=== PATIENT | female | born 1955 | race African-American/Black ===

== ENCOUNTER 2017-06-11 10:02 | Inpatient (IN) | payer MEDICAID ==
--- NOTE | 2017-06-11 10:28 | ED Physician Chart ---
ED Chief Complaint/HPI - Patient Information Date Seen:: 06/11/17 Time Seen:: 10:15 Chief Complaint:: Chest Pain History of Present Illness:: onset x 12 hours of intermittent, sharp chest pain radiating to left shoulder; and diaphoresis; pt denies trauma, H/As, neck pain, dyspnea, cough, abd. pain, A /N/V/D/C, fever, chills, or urinary s/s Allergies:: Allergies Allergy/AdvReac Type Severity Reaction Status Date / Time doxycycline Allergy Verified 06/11/17 10:19 levofloxacin [From Levaquin] Allergy Verified 06/11/17 10:19 prednisone Allergy Verified 06/11/17 10:19 tetracycline Allergy Verified 06/11/17 10:19 Historian:: Patient, EMS Review:: Nurse's Note Reviewed, Old Chart Reviewed, EMS run form Reviewed ED Review of Systems - Review of Systems General/Constitutional: No fever, No chills, No weight loss, No weakness, No diaphoresis, No edema, No loss of appetite Skin: No skin lesions, No rash, No bruising Head: No headache, No light-headedness Eyes: No loss of vision, No pain, No diplopia ENT: No earache, No nasal drainage, No sore throat, No tinnitus Neck: No neck pain, No swelling, No thyromegaly, No stiffness, No mass noted Cardio Vascular: Chest pain, Palpitations, No PND, No orthopnea, No edema Pulmonary: SOB, No cough, No sputum, No wheezing GI: No nausea, No vomiting, No diarrhea, No pain, No melena, No hematochezia, No constipation, No hematemesis G/U: No dysuria, No frequency, No hematuria, No nacturia [employer]: No vaginal discharge, No abnormal vaginal bleed, No contraction Musculoskeletal: No bone or joint pain, No back pain, No muscle pain Endocrine: No polyuria, No polydipsia Psychiatric: No prior psych history, No depression, No anxiety, No suicidal ideation, No homicidal ideation, No auditory hallucination, No visual hallucination Hematopoietic: No bruising, No lymphadenopathy Allergic/Immuno: No urticaria, No angioedema Neurological: No syncope, No focal symptoms, No weakness, No paresthesia, No headache, No seizure, No dizziness, No confusion, No vertigo ED Past Medical History - Past Medical History Obtainable: Yes Past Medical History: HTN, Dyslipidemia Family History: HTN Social History: Non Smoker, No Alcohol, No Drug Use, Single Surgical History: None Psychiatricy History: None Medication: Reviewed ED Physical Exam - Physical Examination General/Constitutional: Awake, Well-developed, well-nourished, Alert, No distress, GCS 15, Non-toxic appearing, Ambulatory Head: Atraumatic Eyes: Lids, conjuctiva normal, PERRL, EOMI Skin: Nl inspection, No rash, No skin lesions, No ecchymosis, Well hydrated, No lymphadenopathy ENMT: External ears, nose nl, Nasal exam nl, Lips, teeth, gums nl Neck: Nontender, Full ROM w/o pain, No JVD, No nuchal rigidity, No bruit, No mass, No stridor Respiratory: Nl effort/Exclusion, Clear to Auscultation, No Wheeze/Rhonchi/Rales Cardio Vascular: RRR, No murmur, gallop, rubs, NL S1 S2, Carotid/Femoral/Distal pulses equal bilaterally GI: No tenderness/rebounding/guarding, No organomegaly, No hernia, Normal BS's, Nondistended, No mass/bruits, No McBurney tenderness : No CVA tenderness Extremities: No tenderness or effusion, Full ROM, normal strength in all extremities, No edema, Normal digits & nails Neuro/Psych: Alert/oriented, DTR's symmetric, Normal sensory exam, Normal motor strength, Judgement/insight normal, Mood normal, Normal gait, No focal deficits Misc: Normal back, No paraspinal tenderness ED Labs/Radiology/EKG Results - Lab Results Comments:: WBC: 3.2; D-Dimer: 644; Troponin: 0.64; BNP: 464 - Radiology Results Comments:: NAD - EKG Interpretations EKG Time:: 11:16 Rate & Rhythm: 80; NSR Comments:: T-Wave Inversions ED Septic Shock - . Is Septic Shock (SBP<90, OR Lactate>4 mmol\L) present?: No ED Reassessment (Disposition) - Reassessment Reassessment Condition:: Improved - Diagnosis Diagnosis:: Dx: Myocardial Ischemia; CHF; Leukopenia; R/O: DVT/PE; Chest Pain - Aftercare/Follow up Instructions Aftercare/Follow-Up Instructions:: Counseled pt regarding lab results/diagnosis & need follow up, Counseled pt & family regarding lab results/diagnosis & need follow up - Patient Disposition Discharge/Transfer:: Acute Care w/in this hosp Accepting Physician:: Dr. Jensen Time Called:: 1215 Time Responded:: 12:15 Admitted to:: ICU Spoke to:: Dr. Jensen Admitting Medical Physician:: Dr. Jensen Condition at Disposition:: Stable, Improved
[2017-06-11 10:52] LABS: % LYMPHOCYTES 22.1 % (20.0-50.0); HEMOGLOBIN 13.3 gm/dL (12-16); LYMPHOCYTE ABSOLUTE 0.7 Th/cmm (1.5-3.0); MONOCYTE ABSOLUTE 0.3 Th/cmm (0.3-1.0); NEUTROPHILE ABSOLUTE 2.2 Th/cmm (1.8-8.0)
[2017-06-11 11:00] LABS: % BASOPHILS 0.1 % (0.0-2.0); % EOSINOPHILS 0.9 % (0.0-5.0); % MONOCYTES 9.4 % (2.0-10.0); % NEUTROPHILS 67.5 % (40.0-80.0); HEMATOCRIT 40.5 % (41.0-60); MEAN CELL VOLUME 84.1 fl (81-100); MEAN CORPUSCULAR HEMOGLOBIN 27.7 pg (27.0-31.0); MEAN PLATELET VOLUME 7.6 fl; PLATELET COUNT 282 Th/cmm (150-400); RED BLOOD COUNT 4.81 Mil/cmm (3.80-5.10); RED CELL DISTRIBUTION WIDTH 15.4 % (11.5-20.0)
[2017-06-11 11:05] LABS: ALB/GLOB RATIO 1.2 (1.0-1.8); ALKALINE PHOSPHATASE 65 U/L (34-104); ANION GAP 8.8 (7.0-16.0); BILIRUBIN,TOTAL 0.6 mg/dL (0.3-1.0); BUN - UREA NITROGEN 10 mg/dL (7-25); CALCIUM SERUM 9.9 mg/dL (8.6-10.3); CHLORIDE 104 mEq/L (98-107); CHOLESTEROL 243 mg/dL (<200); CREATININE - SERUM 0.8 mg/dL (0.6-1.2); CREATININE KINASE 116 U/L (30-223); GFR AFRICAN-AMERICAN > 60.0 ml/min (>90); GFR NON AFRICAN-AMERICAN > 60.0 ml/min; GLUCOSE 108 mg/dL (70-105); HDL -HIGH DENSITY LIPOPROTEIN 87 mg/dL (23-92); INR 0.95 (0.5-1.4); POTASSIUM SERUM 3.8 mEq/L (3.5-5.1); PROTHROMBIN TIME (TEST) 9.9 SECONDS (9.5-11.5); SGOT 34 U/L (13-39); SGPT/ALT 16 U/L (7-52); SODIUM SERUM 134 mEq/L (136-145); TOTAL PROTEIN,SERUM 7.4 gm/dL (6.0-8.3); TRIGLYCERIDES 118 mg/dL (<150); WHITE BLOOD COUNT 3.2 Th/cmm (4.8-10.8)
[2017-06-11] MEDS ORDERED: Aspirin 325 mg EC PO ONE (11:26)
[2017-06-11] MEDS ORDERED: Morphine Sulfate 2 mg/mL 1mL Syr IV STA (11:28)
[2017-06-11 11:35] LABS: DDIMER QUANT 644 ng/mL (100-400)
[2017-06-11] MEDS ORDERED: Aspirin 81mg Chewable Tab ONE (11:54)
[2017-06-11] MEDS ORDERED: Morphine Sulfate 2 mg/mL 1mL Syr ONE (11:54)
--- NOTE | 2017-06-11 14:57 | Diagnostic Imaging Report ---
CHEST X-RAY: AP view INDICATION: pain COMPARISON: None FINDINGS: Patient is mildly rotated. There is eventration of the right hemidiaphragm. Minimal right basal scarring is noted. No focal consolidation or effusions. Mildly tortuous aorta is noted. Degenerative changes of the spine are noted. Postsurgical changes of the upper abdomen are noted. IMPRESSION: No focal consolidation identified. Mildly tortuous aorta. Eventration of the right hemidiaphragm.
[2017-06-11] MEDS ORDERED: IOHEXOL 350mgI/mL 150mL IV ONE (21:30)
[2017-06-11] MEDS ORDERED: Acetaminophen 500 MG TAB PO PRN (22:38)
[2017-06-12 01:52] LABS: AMPHETAMINE URINE NEGATIVE (NEGATIVE); BARBITURATES URINE NEGATIVE (NEGATIVE); BENZODIAZEPINES QUAL URINE POSITIVE (NEGATIVE); CANNABINOID THC NEGATIVE (NEGATIVE); COCAINE METABOLITE QUAL URINE NEGATIVE (NEGATIVE); METHADONE URINE NEGATIVE (NEGATIVE); METHAMPHETAMINES QUAL URINE NEGATIVE (NEGATIVE); OPIATES (MORPHINE) QUAL. URINE POSITIVE (NEGATIVE); PHENCYCLIDINE (PCP) URINE NEGATIVE (NEGATIVE); TRICYCLICS (TCA) QUAL. URINE NEGATIVE (NEGATIVE)
--- NOTE | 2017-06-12 03:27 | History & Physical ---
ADMIT DATE: 06/11/2017 CHIEF COMPLAINT: Chest pain. HISTORY OF PRESENT ILLNESS: This is a 61-year-old with underlying history of hypertension, chronic anxiety and chronic smoker, who lives at home, was brought into the Emergency Room for evaluation of left-sided chest pain. The patient was evaluated in the Emergency Room, the patient noted to have elevated troponin as well as elevated D-dimer, subsequently admitted to the hospital for treatments. The patient stated chest pain started this morning, radiating to the left arm. No associated dizziness. No palpitation, no diaphoresis, no shortness of breath. The patient says she does have underlying history of chronic anxiety and she takes Xanax as needed. She is also a chronic smoker, quit smoking a few days ago and started wearing a nicotine patch. PAST MEDICAL HISTORY: Hypertension. PAST SURGICAL HISTORY: None reported. FAMILY HISTORY: Positive for diabetes in mother. The patient denies significant family history of heart disease. ALLERGIES: DOXYCYCLINE, LEVAQUIN, PREDNISONE, TETRACYCLINE. REVIEW OF SYSTEMS: As per HPI, 12-point system reviewed, appears negative. PHYSICAL EXAMINATION: VITAL SIGNS: Temperature 98.7, pulse 86, respirations 17, blood pressure 221/89, oxygen 98% on room air. Pain is 0/10. GENERAL APPEARANCE: The patient does not seem in acute distress, lying comfortably. HEENT: Unremarkable. HEART: S1, S2 normal. LUNGS: Clear to auscultation bilaterally. ABDOMEN: Soft, nontender. No guarding. No rigidity. NEUROLOGIC: Alert, awake, follows commands.. Moves all extremities. No focal deficits. EXTREMITIES: No edema. LABORATORY DATA: Available laboratory data has been reviewed. ASSESSMENT: 1. Chest pain with elevated troponin, rule out acute coronary syndrome. 2. Chest pain with elevated D-dimer, rule out pulmonary embolism. 3. Chronic anxiety. 4. Hypertension. 5. Chronic ex-smoker. PLAN: The patient was admitted to tele unit for cardiac monitoring. Cardiology was consulted. Echocardiogram ordered. Also, due to elevated D-dimer, rule out pulmonary embolism. CT angio chest ordered to rule out PE, pending. Lower extremity venous Doppler to rule out a DVT. Xanax p.r.n. for anxiety. Urine drug screen ordered. Metoprolol started. Aspirin started. I discussed the patient's condition and plan of care discussed with nursing staff. [facility]# [id number]
--- NOTE | 2017-06-12 08:11 | Diagnostic Imaging Report ---
Bilateral lower extremity DVT study HISTORY: Pain COMPARISON: None Technique: Longitudinal and transverse sonographic images of the bilateral lower extremity veins were obtained with doppler analysis. FINDINGS: There is normal compressibility, augmentation and phasicity of the bilateral common femoral, superficial femoral, popliteal, and posterior tibial veins. No thrombus is visualized. IMPRESSION: No evidence of thrombus within the bilateral lower extremity veins.
[2017-06-12] MEDS: Aspirin 81mg Chewable Tab PO SCH (09:00)
--- NOTE | 2017-06-12 11:53 | Diagnostic Imaging Report ---
CT angiogram of the chest with intravenous contrast (CTA) HISTORY: Pain Total DLP equals 249 CTDI equals 11.0 Following administration of intravenous contrast, axial sections were obtained from a level above the clavicles down to level below the diaphragm. The overall heart size is normal. There is normal opacification of the main, right, and left pulmonary arteries. No intraluminal filling defects are seen. Stiffly, no evidence of pulmonary embolism. There is a degree of dilatation of the ascending aorta (maximum diameter equals 3.9 cm). No evidence of aortic dissection. No abnormal mediastinal masses. No abnormal focal pulmonary parenchymal processes. No abnormal pulmonary parenchymal masses or nodules. No pleural fluid is seen. IMPRESSION: 1. No evidence of pulmonary embolism 2. Aneurysmal dilatation of the ascending aorta with a maximum diameter of approximately 3.9 cm. 3. No other acute abnormalities
[2017-06-12] MEDS ORDERED: Enoxaparin Subq per Pharmacy MC SCH (13:15)
--- NOTE | 2017-06-12 15:47 | Cardiology ---
06/12/[address] Mikey Shepard. PROCEDURE: Echocardiogram. M-MODE ECHOCARDIOGRAM: Mitral valve, anterior leaflet of mitral valve shows normal excursion, EF velocity. Posterior leaflet of mitral valve shows normal excursion. Left ventricular posterior wall shows increased thickness, normal excursion. Interventricular septum shows increased thickness, normal excursion, hypertrophy of the left ventricle, ejection fraction 50%. Left atrium normal. Aortic root shows normal dimension, normal excursion of aortic leaflets. CONCLUSION: Hypertrophy of the left ventricle, ejection fraction 50%. 2D ECHO: Long axis view showed normal sized left ventricle with hypertrophy of the left ventricle. Left atrium normal. Aortic root shows normal dimension, normal excursion of aortic leaflets. Short axis view of mitral valve normal. Short axis view of aortic valve normal. Apical four chamber view showed normal sized left ventricle, left atrium, right ventricle, right atrium, tricuspid and mitral valve. Ejection fraction 50%. CONCLUSION: Hypertrophy of the left ventricle, ejection fraction 50%. Doppler study showed mild mitral regurgitation, mild tricuspid regurgitation. [facility]# [id number]
[2017-06-12] MEDS: Enoxaparin 80 mg/0.8 mL 0.8mL Syr SUBQ SCH ×2 (15:53→21:50)
--- NOTE | 2017-06-12 18:29 | Consultation ---
DATE OF CONSULTATION: 06/12/[address] Mikey Shepard. HISTORY OF PRESENT ILLNESS: This is a 61-year-old female patient was brought to the Emergency Room with chest pain. No history of PND, orthopnea, or radiating to the arm. The patient had slightly elevated troponin level with elevated BNP level. PAST MEDICAL HISTORY: Hypertension, COPD, nicotine dependence, abdominal aortic aneurysm, and anxiety. FAMILY HISTORY: Unremarkable. SOCIAL HISTORY: The patient has been a smoker. ALLERGIES: DOXYCYCLINE, LEVAQUIN, PREDNISONE, and TETRACYCLINE. PHYSICAL EXAMINATION: VITAL SIGNS: Blood pressure 220/99, pulse 88, and respirations 28. HEAD: Normocephalic. No lumps or bumps. EYES: Pupils equal, reactive to light. Fundi show AV nicking, sclerae white, conjunctivae pink. NECK: Carotid 2+. Normal upstroke. JVD 10 cm above sternal angle. Thyroid not palpable. Lymph nodes not palpable. CHEST: Shows increased AP diameter. No kyphosis, scoliosis. LUNGS: Bilateral bronchovesicular breath sounds. HEART: PMI fifth intercostal space with lateral to midclavicular line. S1, S2. No S3, S4, soft systolic murmur. ABDOMEN: Soft. Liver, spleen not palpable. No organomegaly. Bowel sounds active. NEUROLOGIC: Unremarkable. EXTREMITIES: Peripheral pulses 2+. No pedal edema. CLINICAL IMPRESSION: Chest pain, rule out coronary artery disease, congestive heart failure, probably diastolic dysfunction acute, chronic obstructive pulmonary disease, nicotine dependence, abdominal aortic aneurysm size 3.9, and anxiety. PLAN: Mostly the patient's EKG shows normal sinus rhythm with abnormal T waves, subendocardial infarct. The patient's echocardiogram showed ejection fraction 50%, mild mitral regurgitation, mild tricuspid regurgitation, ejection fraction 50%. The patient to be started on Lovenox, beta karla, nitrates, and due to hyperlipidemia, Lipitor. JOB# [id number]
--- NOTE | 2017-06-12 20:49 | General Progress Note ---
Subjective - Review of Systems Service Date: 06/12/17 Subjective: Patient seen and examined feels better denied any complaints Objective - Results Result Diagrams: 06/11/17 10:40 06/11/17 10:40 Recent Labs: Laboratory Last Values WBC 3.2 Th/cmm (4.8-10.8) L 06/11/17 10:40 RBC 4.81 Mil/cmm (3.80-5.10) 06/11/17 10:40 Hgb 13.3 gm/dL (12-16) 06/11/17 10:40 Hct 40.5 % (41.0-60) L 06/11/17 10:40 MCV 84.1 fl (81-100) 06/11/17 10:40 MCH 27.7 pg (27.0-31.0) 06/11/17 10:40 MCHC Differential 33.0 pg (28.0-36.0) 06/11/17 10:40 RDW 15.4 % (11.5-20.0) 06/11/17 10:40 Plt Count 282 Th/cmm (150-400) 06/11/17 10:40 MPV 7.6 fl 06/11/17 10:40 Neutrophils % 67.5 % (40.0-80.0) 06/11/17 10:40 Lymphocytes % 22.1 % (20.0-50.0) 06/11/17 10:40 Monocytes % 9.4 % (2.0-10.0) 06/11/17 10:40 Eosinophils % 0.9 % (0.0-5.0) 06/11/17 10:40 Basophils % 0.1 % (0.0-2.0) 06/11/17 10:40 PT 9.9 SECONDS (9.5-11.5) 06/11/17 10:40 INR 0.95 (0.5-1.4) 06/11/17 10:40 D-Dimer 644 ng/mL (100-400) H 06/11/17 10:40 Sodium 134 mEq/L (136-145) L 06/11/17 10:40 Potassium 3.8 mEq/L (3.5-5.1) 06/11/17 10:40 Chloride 104 mEq/L (98-107) 06/11/17 10:40 Carbon Dioxide 25.0 mEq/L (21.0-31.0) 06/11/17 10:40 Anion Gap 8.8 (7.0-16.0) 06/11/17 10:40 BUN 10 mg/dL (7-25) 06/11/17 10:40 Creatinine 0.8 mg/dL (0.6-1.2) 06/11/17 10:40 Est GFR ( Amer) > 60.0 ml/min (>90) 06/11/17 10:40 Est GFR (Non-Af Amer) > 60.0 ml/min 06/11/17 10:40 BUN/Creatinine Ratio 12.5 06/11/17 10:40 Glucose 108 mg/dL (70-105) H 06/11/17 10:40 POC Glucose 105 MG/DL (70 - 105) 06/11/17 10:40 Whole Bld Lactic Acid 1.87 mmol/L (0.60-1.99) 06/11/17 10:40 Calcium 9.9 mg/dL (8.6-10.3) 06/11/17 10:40 Total Bilirubin 0.6 mg/dL (0.3-1.0) 06/11/17 10:40 AST 34 U/L (13-39) 06/11/17 10:40 ALT 16 U/L (7-52) 06/11/17 10:40 Alkaline Phosphatase 65 U/L (34-104) 06/11/17 10:40 Creatine Kinase 116 U/L (30-223) 06/11/17 10:40 Troponin I 0.32 ng/mL (0.01-0.05) H* D 06/12/17 02:30 B-Natriuretic Peptide 464.0 pg/mL (5.0-100.0) H 06/11/17 10:40 Total Protein 7.4 gm/dL (6.0-8.3) 06/11/17 10:40 Albumin 4.0 gm/dL (3.7-5.3) 06/11/17 10:40 Globulin 3.4 gm/dL 06/11/17 10:40 Albumin/Globulin Ratio 1.2 (1.0-1.8) 06/11/17 10:40 Triglycerides 118 mg/dL (<150) 06/11/17 10:40 Cholesterol 243 mg/dL (<200) H 06/11/17 10:40 LDL Cholesterol Direct 136 mg/dL (75-193) 06/11/17 10:40 HDL Cholesterol 87 mg/dL (23-92) 06/11/17 10:40 Serum , Qual NEGATIVE (NEGATIVE) 06/11/17 10:40 Urine Opiates Screen POSITIVE (NEGATIVE) H 06/12/17 00:45 Urine Methadone Screen NEGATIVE (NEGATIVE) 06/12/17 00:45 Ur Barbiturates Screen NEGATIVE (NEGATIVE) 06/12/17 00:45 Ur Tricyclics Screen NEGATIVE (NEGATIVE) 06/12/17 00:45 Ur Phencyclidine Scrn NEGATIVE (NEGATIVE) 06/12/17 00:45 Amphetamines Screen NEGATIVE (NEGATIVE) 06/12/17 00:45 U Methamphetamines Scrn NEGATIVE (NEGATIVE) 06/12/17 00:45 U Benzodiazepines Scrn POSITIVE (NEGATIVE) H 06/12/17 00:45 U Cocaine Metab Screen NEGATIVE (NEGATIVE) 06/12/17 00:45 U Cannabinoids Screen NEGATIVE (NEGATIVE) 06/12/17 00:45 - Physical Exam Vitals and I&O: Vital Signs Temp 98.2 F 06/12/17 20:00 Pulse 94 06/12/17 20:00 Resp 18 06/12/17 20:00 BP 130/90 06/12/17 20:00 Pulse Ox 100 06/12/17 20:00 Intake & Output 06/12/17 06/12/17 06/13/17 06:59 18:59 06:59 Intake Total 400 720 Balance 400 720 Weight (lbs) 64.864 kg 64.864 kg Intake: Oral 400 720 Other: # Voids 2 # Bowel Movements 0 Active Medications: Current Medications Acetaminophen (Tylenol Extra Strength) 500 mg PO Q4H PRN PRN Reason: Pain (Moderate) Stop: 08/10/17 22:37 Alprazolam (Xanax) 0.5 mg PO Q8HR PRN; Protocol PRN Reason: Anxiety Stop: 08/10/17 21:28 Aripiprazole (Abilify) 5 mg PO DAILY BERNY PRN Reason: Protocol Stop: 08/12/17 08:59 Aspirin (Aspirin Chewable) 81 mg PO DAILY BERNY Stop: 08/11/17 08:59 Last Admin: 06/12/17 09:00 Dose: 81 mg Atorvastatin Calcium (Lipitor) 10 mg PO DAILY BERNY PRN Reason: Protocol Stop: 08/12/17 08:59 Enoxaparin Sodium (Lovenox) 65 mg SUBQ Q12HR@0900,2100 [facility] Stop: 08/11/17 12:59 Last Admin: 06/12/17 15:53 Dose: 65 mg Metoprolol Tartrate (Lopressor) 12.5 mg PO BID [facility] Stop: 08/10/17 16:59 Last Admin: 06/12/17 16:00 Dose: 12.5 mg Miscellaneous (Lovenox Subq Per Pharmacy) 1 ea MC PRN BERNY PRN Reason: Protocol Stop: 08/11/17 13:14 Nicotine (Nicotine Transdermal System) 7 mg TD DAILY [facility] Stop: 08/12/17 08:59 Ondansetron HCl (Zofran) 4 mg IV Q6H PRN PRN Reason: Nausea / Vomiting Stop: 08/10/17 21:29 Sertraline HCl (Zoloft) 50 mg PO HS BERNY PRN Reason: Protocol Stop: 08/11/17 20:59 Tramadol HCl (Ultram) 50 mg PO Q6HR PRN PRN Reason: Moderate to Severe Pain Stop: 08/10/17 22:25 Last Admin: 06/12/17 15:52 Dose: 50 mg Trazodone HCl (Desyrel) 50 mg PO HS PRN; Protocol PRN Reason: Insomnia Stop: 08/11/17 20:59 Last Admin: 06/12/17 00:23 Dose: 50 mg Cardiovascular: Regular rate Lungs: Clear to auscultation Assessment/Plan - Problem List Patient Problems: All Active Problems DIAPHORETIC EPISODE (Acute) - Assessment Assessment: Acute coronary syndrome Nicotine dependancy HTN Anxiety Elevated D Dimer - Plan Plan: Case was discussed with DR Beverly WARE (Cardiology on board) who recommended patient needs to be transferred out for cardiac cath. Transfer in progress per CM. Continue current treatment. Patient aware about her diagnosis and plan of care Nicotine patch started. CT Angio negative for PE. Aneurysm 3.9 cm stable.
--- NOTE | 2017-06-13 01:18 | Consultation ---
DATE OF CONSULTATION: 06/12/2017 HISTORY OF PRESENT ILLNESS: A 61-year-old female with history of major depression and smoking and history of alcoholism and panic disorder, also notes that she has a history of schizophrenia. The patient came in due to elevated troponins, elevated D-dimer, states she had a panic attack near the bus stop on the way to her psychiatrist. Denies current depression, but just anxiety, panic disorder once a week to once a month, fairly well controlled. The patient states she is sleeping okay, eating okay. She states her eating is limited because she has history of having gastric sleeve. The patient is hopeful and motivated, wants things to get better. PAST PSYCHIATRIC HISTORY: Suicide attempt about 2 years ago. She has been to a psychiatric hospital before, alludes to a history of diagnosed schizophrenia, depression and social anxiety and panic disorder and generalized anxiety disorder. FAMILY HISTORY: Brother with schizophrenia. SOCIAL HISTORY: Born in [place], . She states she has two daughters. One of the daughters she notes lives in [place], currently living in [place], trying to stop smoking, uses the patch, trying to stop drinking, get the Vivitrol shot, drinks about one can of beer per day now. She is very motivated to get off of alcohol and cigarettes. ALLERGIES: Noted. PAST MEDICAL HISTORY: Noted including hypertension. MENTAL STATUS EXAMINATION: Stated age. Fair eye contact. Speech within normal limits. Mood "better". Affect broad. Thought processes were linear. No SI, no intent, no plan. No HI, no intent, no plan. No evidence of any psychotic symptoms. Insight and judgment fair. The patient wants help. She wants to get better. PROVISIONAL DIAGNOSES: Schizophrenia per the patient, major depressive disorder, unspecified, seemingly in full remission. Also, social anxiety disorder, generalized anxiety disorder, panic disorder, alcohol use disorder, mild; nicotine use disorder, mild. She is trying to quit. UNDER MEDICAL: Please see full H and P. PLAN: We initiate Zoloft. The patient may also benefit from an antipsychotic given her schizophrenia history such as Georginalijah. This may also help tamper down some of her anxiety. No 5150 criteria. She is not suicidal. She is not homicidal. She is not gravely disabled. JOB# [id number]
[2017-06-13] MEDS: Atorvastatin Calcium 10 MG TAB PO SCH (09:28)
[2017-06-13] MEDS: Enoxaparin 80 mg/0.8 mL 0.8mL Syr SUBQ SCH ×2 (09:28→21:34)
[2017-06-13] MEDS: Aspirin 81mg Chewable Tab PO SCH (09:28)
[2017-06-13] MEDS: Nicotine 7 mg/24 hr Tdm TD SCH (09:30)
--- NOTE | 2017-06-13 13:37 | General Progress Note ---
Subjective - Review of Systems Service Date: 06/13/17 Subjective: Patient seen and examined feels better denied any complaints Objective - Results Result Diagrams: 06/11/17 10:40 06/11/17 10:40 Recent Labs: Laboratory Last Values WBC 3.2 Th/cmm (4.8-10.8) L 06/11/17 10:40 RBC 4.81 Mil/cmm (3.80-5.10) 06/11/17 10:40 Hgb 13.3 gm/dL (12-16) 06/11/17 10:40 Hct 40.5 % (41.0-60) L 06/11/17 10:40 MCV 84.1 fl (81-100) 06/11/17 10:40 MCH 27.7 pg (27.0-31.0) 06/11/17 10:40 MCHC Differential 33.0 pg (28.0-36.0) 06/11/17 10:40 RDW 15.4 % (11.5-20.0) 06/11/17 10:40 Plt Count 282 Th/cmm (150-400) 06/11/17 10:40 MPV 7.6 fl 06/11/17 10:40 Neutrophils % 67.5 % (40.0-80.0) 06/11/17 10:40 Lymphocytes % 22.1 % (20.0-50.0) 06/11/17 10:40 Monocytes % 9.4 % (2.0-10.0) 06/11/17 10:40 Eosinophils % 0.9 % (0.0-5.0) 06/11/17 10:40 Basophils % 0.1 % (0.0-2.0) 06/11/17 10:40 PT 9.9 SECONDS (9.5-11.5) 06/11/17 10:40 INR 0.95 (0.5-1.4) 06/11/17 10:40 D-Dimer 644 ng/mL (100-400) H 06/11/17 10:40 Sodium 134 mEq/L (136-145) L 06/11/17 10:40 Potassium 3.8 mEq/L (3.5-5.1) 06/11/17 10:40 Chloride 104 mEq/L (98-107) 06/11/17 10:40 Carbon Dioxide 25.0 mEq/L (21.0-31.0) 06/11/17 10:40 Anion Gap 8.8 (7.0-16.0) 06/11/17 10:40 BUN 10 mg/dL (7-25) 06/11/17 10:40 Creatinine 0.8 mg/dL (0.6-1.2) 06/11/17 10:40 Est GFR ( Amer) > 60.0 ml/min (>90) 06/11/17 10:40 Est GFR (Non-Af Amer) > 60.0 ml/min 06/11/17 10:40 BUN/Creatinine Ratio 12.5 06/11/17 10:40 Glucose 108 mg/dL (70-105) H 06/11/17 10:40 POC Glucose 105 MG/DL (70 - 105) 06/11/17 10:40 Whole Bld Lactic Acid 1.87 mmol/L (0.60-1.99) 06/11/17 10:40 Calcium 9.9 mg/dL (8.6-10.3) 06/11/17 10:40 Total Bilirubin 0.6 mg/dL (0.3-1.0) 06/11/17 10:40 AST 34 U/L (13-39) 06/11/17 10:40 ALT 16 U/L (7-52) 06/11/17 10:40 Alkaline Phosphatase 65 U/L (34-104) 06/11/17 10:40 Creatine Kinase 116 U/L (30-223) 06/11/17 10:40 Troponin I 0.32 ng/mL (0.01-0.05) H* D 06/12/17 02:30 B-Natriuretic Peptide 464.0 pg/mL (5.0-100.0) H 06/11/17 10:40 Total Protein 7.4 gm/dL (6.0-8.3) 06/11/17 10:40 Albumin 4.0 gm/dL (3.7-5.3) 06/11/17 10:40 Globulin 3.4 gm/dL 06/11/17 10:40 Albumin/Globulin Ratio 1.2 (1.0-1.8) 06/11/17 10:40 Triglycerides 118 mg/dL (<150) 06/11/17 10:40 Cholesterol 243 mg/dL (<200) H 06/11/17 10:40 LDL Cholesterol Direct 136 mg/dL (75-193) 06/11/17 10:40 HDL Cholesterol 87 mg/dL (23-92) 06/11/17 10:40 Serum , Qual NEGATIVE (NEGATIVE) 06/11/17 10:40 Urine Opiates Screen POSITIVE (NEGATIVE) H 06/12/17 00:45 Urine Methadone Screen NEGATIVE (NEGATIVE) 06/12/17 00:45 Ur Barbiturates Screen NEGATIVE (NEGATIVE) 06/12/17 00:45 Ur Tricyclics Screen NEGATIVE (NEGATIVE) 06/12/17 00:45 Ur Phencyclidine Scrn NEGATIVE (NEGATIVE) 06/12/17 00:45 Amphetamines Screen NEGATIVE (NEGATIVE) 06/12/17 00:45 U Methamphetamines Scrn NEGATIVE (NEGATIVE) 06/12/17 00:45 U Benzodiazepines Scrn POSITIVE (NEGATIVE) H 06/12/17 00:45 U Cocaine Metab Screen NEGATIVE (NEGATIVE) 06/12/17 00:45 U Cannabinoids Screen NEGATIVE (NEGATIVE) 06/12/17 00:45 - Physical Exam Vitals and I&O: Vital Signs Temp 97.9 F 06/13/17 12:00 Pulse 91 06/13/17 12:00 Resp 18 06/13/17 12:00 BP 98/69 06/13/17 12:00 Pulse Ox 97 06/13/17 12:00 Intake & Output 06/12/17 06/13/17 06/13/17 18:59 06:59 18:59 Intake Total 720 Balance 720 Weight (lbs) 64.864 kg 71.441 kg Intake: Oral 720 Active Medications: Current Medications Acetaminophen (Tylenol Extra Strength) 500 mg PO Q4H PRN PRN Reason: Pain (Moderate) Stop: 08/10/17 22:37 Alprazolam (Xanax) 0.5 mg PO Q8HR PRN; Protocol PRN Reason: Anxiety Stop: 08/10/17 21:28 Aripiprazole (Abilify) 5 mg PO DAILY BERNY PRN Reason: Protocol Stop: 08/12/17 08:59 Aspirin (Aspirin Chewable) 81 mg PO DAILY BERNY Stop: 08/11/17 08:59 Last Admin: 06/13/17 09:28 Dose: 81 mg Atorvastatin Calcium (Lipitor) 10 mg PO DAILY BERNY PRN Reason: Protocol Stop: 08/12/17 08:59 Last Admin: 06/13/17 09:28 Dose: 10 mg Enoxaparin Sodium (Lovenox) 65 mg SUBQ Q12HR@0900,2100 [facility] Stop: 08/11/17 12:59 Last Admin: 06/13/17 09:28 Dose: 65 mg Metoprolol Tartrate (Lopressor) 12.5 mg PO BID [facility] Stop: 08/10/17 16:59 Last Admin: 06/13/17 09:29 Dose: Not Given Miscellaneous (Lovenox Subq Per Pharmacy) 1 ea MC PRN BERNY PRN Reason: Protocol Stop: 08/11/17 13:14 Nicotine (Nicotine Transdermal System) 7 mg TD DAILY [facility] Stop: 08/12/17 08:59 Last Admin: 06/13/17 09:30 Dose: 7 mg Ondansetron HCl (Zofran) 4 mg IV Q6H PRN PRN Reason: Nausea / Vomiting Stop: 08/10/17 21:29 Sertraline HCl (Zoloft) 50 mg PO HS BERNY PRN Reason: Protocol Stop: 08/11/17 20:59 Tramadol HCl (Ultram) 50 mg PO Q6HR PRN PRN Reason: Moderate to Severe Pain Stop: 08/10/17 22:25 Last Admin: 06/13/17 09:45 Dose: 50 mg Trazodone HCl (Desyrel) 50 mg PO HS PRN; Protocol PRN Reason: Insomnia Stop: 08/11/17 20:59 Last Admin: 06/12/17 21:58 Dose: 50 mg Cardiovascular: Regular rate Lungs: Clear to auscultation Assessment/Plan - Problem List Patient Problems: All Active Problems DIAPHORETIC EPISODE (Acute) - Assessment Assessment: Acute coronary syndrome Nicotine dependancy HTN Anxiety Elevated D Dimer - Plan Plan: Awaiting DC to [facility] Continue current treatment DC plan discussed with patient's nurse
[2017-06-14] MEDS: Atorvastatin Calcium 10 MG TAB PO SCH (08:42)
[2017-06-14] MEDS: Aspirin 81mg Chewable Tab PO SCH (08:43)
[2017-06-14] MEDS: Nicotine 7 mg/24 hr Tdm TD SCH (08:44)
[2017-06-14] MEDS: Enoxaparin 80 mg/0.8 mL 0.8mL Syr SUBQ SCH (08:47)
--- NOTE | 2017-06-14 10:02 | Progress Notes ---
DATE: PSYCHIATRIC PROGRESS NOTE SUBJECTIVE: Chart reviewed and the patient interviewed. Also discussed the patient's condition with the staff and reviewed records and labs. The patient seems to be calm at this time and she is not agitated. It is also easier to redirect her. She also has been compliant with taking Abilify and Zoloft with no side effects. ASSESSMENT: The patient is less psychotic and less agitated. TREATMENT PLAN: We will continue to monitor behavior and her condition and will continue to follow up closely. [facility]# [id number]
== END 2017-06-14 10:00 | disposition short-term general hospital (02) | DRG 198 ==
LOC: ER 10:02 → TELE 14:50
PROVIDERS: ADMIT Family Medicine; ATTEND Family Medicine
DX: I24.9 Acute ischemic heart disease, unspecified (principal); I11.0 Hypertensive heart disease with heart failure; F20.9 Schizophrenia, unspecified; I50.9 Heart failure, unspecified; E78.5 Hyperlipidemia, unspecified; F17.210 Nicotine dependence, cigarettes, uncomplicated; Z88.8 Allergy status to other drugs, medicaments and biological substances; Z82.49 Family history of ischemic heart disease and other diseases of the circulatory system; Z83.3 Family history of diabetes mellitus; F10.20 Alcohol dependence, uncomplicated; Y90.9 Presence of alcohol in blood, level not specified; Z81.8 Family history of other mental and behavioral disorders; F33.42 Major depressive disorder, recurrent, in full remission; F41.1 Generalized anxiety disorder; J44.9 Chronic obstructive pulmonary disease, unspecified; I71.4 Abdominal aortic aneurysm, without rupture
CPT/HCPCS: 36415-UA; 71045-TC; 71275-TC; 80053-TC; 80061-TC; 80307; 82550-TC; 82948-90; 83605; 83880-TC; 84484-TC; 84703-TC; 85025-TC; 85379-TC; 85610-TC; 93005; 93970-TC-50; 94760; 96374; J1650; J2060; J2270; Z7610

== ENCOUNTER 2017-06-16 07:41 | Emergency (ER) | payer MEDICAID ==
--- NOTE | 2017-06-16 08:01 | ED Physician Chart ---
ED Chief Complaint/HPI - Patient Information Date Seen:: 06/16/17 Time Seen:: 07:58 Chief Complaint:: LEG PAIN 2 HOURS History of Present Illness:: THIS 61-YEAR-OLD FEMALE PRESENTS WITH PAIN IN THE LEFT CALF THAT BEGAN APPROXIMATELY 2 HOURS PRIOR TO ARRIVAL. PATIENT RATES THE SEVERITY OF THE PAIN 10 OVER 10 AND THE CHARACTER OF THE PAIN CRAMPING AND NOT SHARP. THE PAIN RADIATES INTO THE LEFT FOOT. THE PATIENT ALSO COMPLAINS OF NUMBNESS IN THE LEFT LOWER EXTREMITY WHICH HAS PREVIOUSLY BEEN PRESENT. THE PATIENT HAS A COMPLEX HISTORY WITH A RECENT ANGIOGRAM DONE IN THE RIGHT LOWER EXTREMITY. THE PT WAS DISCHARGED LAST PM AFTER A WORK UP FOR CHEST PAIN INCLUDING A CORONARY ANGIOGRAM AFTER BEING WORKED UP TO RULE OUT AN ACUTE VA BY CARDIOLOGY. NO HISTORY OF RECENT SURGERY OR CANCER. NO HISTORY OF PROLONGED IMMOBILIZATION OF THE LOWER EXTREMITIES. NO PRIOR HISTORY OF DVT OR PRIOR PULMONARY EMBOLISM. PATIENT ALSO COMPLAINS OF NUMBNESS IN THE LEFT CALF AND DISTAL LOWER EXTREMITY.. Allergies:: Allergies Allergy/AdvReac Type Severity Reaction Status Date / Time doxycycline Allergy Verified 06/11/17 10:19 levofloxacin [From Levaquin] Allergy Verified 06/11/17 10:19 prednisone Allergy Verified 06/11/17 10:19 tetracycline Allergy Verified 06/11/17 10:19 ED Review of Systems - Review of Systems General/Constitutional: No fever, No chills, No weight loss, Weakness, Diaphoresis, No loss of appetite Skin: No skin lesions, No rash, No bruising Head: No headache, No light-headedness Eyes: No loss of vision, No diplopia ENT: No earache, Sore throat, No tinnitus Neck: Neck pain ( PAIN IN THE LEFT SUPRACLAVICULAR REGION OF THE NET.) Cardio Vascular: No chest pain, No palpitations, No PND, No orthopnea, No edema Pulmonary: SOB, No SOB, No cough, No sputum, No wheezing GI: Nausea, No vomiting, Diarrhea, No pain, No melena, No hematochezia, No constipation, Hematemesis, No hematemesis G/U: No dysuria, No hematuria, No nacturia 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 PARESTHESIAS AND NUMBNESS IN THE LEFT LOWER EXTREMITY.) ED Past Medical History - Past Medical History Past Medical History: HTN, Dementia, Other ( 3.9 CM AORTIC ANEURYSM.) Family History: Heart disease Social History: Smoker, Lives Alone Surgical History: None Family Medical History - Family Member Mother Living Status: Still Living Hx Family Diabetes: Yes Brother Living Status: Still Living Hx Family Diabetes: Yes ED Physical Exam - Physical Examination General/Constitutional: Awake, Well-developed, well-nourished, Alert, Non-toxic appearing Other Gen/Cons comments:: MODERATE DISTRESS SECONDARY TO PAIN IN THE LEFT LEG. NONAMBULATORY. ED Labs/Radiology/EKG Results - Lab Results Results: Laboratory Tests 06/16/17 09:20 Troponin I 0.08 H* D Laboratory Tests 06/16/17 09:20 Troponin I 0.08 H* D SERUM TROPONIN OF ZERO .08 WHICH IS LOWER THAN THE TROPONIN DURING THE HOSPITAL WORK UP OR CHEST PAIN. A DOPPLER STUDY OF THE LEFT LOWER EXTREMITY SHOWED NO EVIDENCE FOR DVT. ED Assessment - Assessment General Assessment: CASE SUMMARY: THIS 61-YEAR-OLD FEMALE PRESENTS TO THE EMERGENCY DEPARTMENT COMPLAINING OF THE COMBINATION OF NUMBNESS AND SEVERE PAIN IN THE LEFT CALF THERE WAS MILD TENDERNESS TO PALPATION OVER THE CALF SENSATION WAS INTACT TO LIGHT TOUCH OVER THE ANKLE AND FOOT. THE PATIENT'S PAIN WAS ADDRESSED WITH 0.5 MG OF DILAUDID. WHICH PROVIDED GOOD RELIEF OF PAIN. DUE TO THE FACT THAT THE PATIENT HAD AN EXTENSIVE CARDIAC WORKUP FOR HER CHEST PAIN, AND THAT THERE WAS NO EVIDENCE OF A DVT I FELT THE PATIENT COULD BE DISCHARGED HOME AND FOLLOW UP WITH HER PRIMARY CARE PHYSICIAN. PATIENT DISCHARGED IN STABLE CONDITION. MDM DDX FOR SEVERE CALF PAIN: NOT GASTROCNEMIUS MUSCLE TEAR BASED ON THE PATIENT'S HISTORY AND EXAMINATION SHOWING NO GASTROCNEMIUS TENDERNESS. NOT CELLULITIS BASED ON PHYSICAL EXAMINATION. LOW RISK FOR NECROTIZING FASCIITIS BASED ON HISTORY AND PHYSICAL EXAM. NOT SIMPLE MUSCLE CRAMP, ED Septic Shock - . Is Septic Shock (SBP<90, OR Lactate>4 mmol\L) present?: No ED Reassessment (Disposition) - Reassessment Reassessment Condition:: Improved - Diagnosis Diagnosis:: NOT DEEP VEIN THROMBOSIS BASED ON THE NEGATIVE ULTRASOUND EXAM. - Aftercare/Follow up Instructions Aftercare/Follow-Up Instructions:: Counseled pt regarding lab results/diagnosis & need follow up - Patient Disposition Discharge/Transfer:: Home ED Discharge Plan - Patient Disposition Admit/Discharge/Transfer: PT DISCHARGED HOME Condition at Disposition: Stable Instructions: Pain, Neuropathic
[2017-06-16] MEDS ORDERED: HYDROmorphone 1 mg/mL 1mL Syr IVP STA (08:33)
[2017-06-16] MEDS ORDERED: HYDROmorphone 1 mg/mL 1mL Syr ONE (11:56)
--- NOTE | 2017-06-17 09:25 | Diagnostic Imaging Report ---
Left lower extremity Doppler venous ultrasound exam HISTORY: Pain/swelling Sonographic sector images were obtained through the deep venous systems of the left leg. Associated Doppler data was obtained. The exam demonstrates patency of the common femoral, superficial femoral, popliteal, and posterior tibial veins. Specifically, no thrombus is seen. There are normal compressibility and augmentation responses. IMPRESSION: Negative exam for deep vein thrombophlebitis.
== END 2017-06-16 12:22 | disposition home or self-care (01) ==
LOC: ER 07:41
DX: M79.605 Pain in left leg (principal); I10 Essential (primary) hypertension; F17.200 Nicotine dependence, unspecified, uncomplicated
CPT/HCPCS: 36415-UA; 84484-TC; 93005; 93971-TC-LT; 96374; J1170

== ENCOUNTER 2017-06-23 11:40 | Emergency (ER) | payer MEDICAID ==
--- NOTE | 2017-06-23 12:11 | ED Physician Chart ---
ED Chief Complaint/HPI - Patient Information Date Seen:: 06/23/17 Time Seen:: 12:10 Chief Complaint:: Left foot pain History of Present Illness:: 61 yo female had left foot pain for a week. She had painful walking on the left foot and bearing weight. She came to ER for left calf pain a week ago, ultrasound of the left lower extremity was negative for DVT. Dilaudid 0.5mg IV was given at that time. Allergies:: Allergies Allergy/AdvReac Type Severity Reaction Status Date / Time doxycycline Allergy Verified 06/11/17 10:19 levofloxacin [From Levaquin] Allergy Verified 06/11/17 10:19 prednisone Allergy Verified 06/11/17 10:19 tetracycline Allergy Verified 06/11/17 10:19 Vitals:: Vital Signs - 8 hr 06/23/17 11:42 Temp 97.3 F HR 107 RR 18 BP 113/82 O2 Sat % 99 ED Review of Systems - Review of Systems General/Constitutional: No fever Skin: No rash Head: No headache Eyes: No pain ENT: No nasal drainage Neck: No neck pain Cardio Vascular: No chest pain Pulmonary: No SOB GI: No nausea, No vomiting Musculoskeletal: Other (Left foot pain) Psychiatric: Prior psych history ED Past Medical History - Past Medical History Past Medical History: Dyslipidemia, Other (AAA) Social History: Smoker, No Alcohol, No Drug Use Surgical History: Cholecystectomy Psychiatricy History: Schizophrenia, Bipolar Family Medical History - Family Member Mother Living Status: Still Living Hx Family Cancer: No Hx Family Coronary Artery Disease: No Hx Family Hypertension: No Hx Family Diabetes: Yes Hx Family Seizures: No Hx Family AIDS: No Hx Family COPD: No Brother History Unknown: Yes Living Status: Still Living Hx Family Cancer: No Hx Family Congestive Heart Failure: No Hx Family Stroke: No Hx Family Diabetes: Yes Hx Family Dementia: No Hx Family HIV: No Hx Family Hepatitis: No Hx Family Psychiatric Problems: No ED Physical Exam - Physical Examination General/Constitutional: Awake, Alert Head: Atraumatic Eyes: PERRL Skin: No ecchymosis ENMT: Nasal exam nl Neck: No nuchal rigidity Respiratory: Clear to Auscultation, No Wheeze/Rhonchi/Rales Cardio Vascular: RRR, No murmur, gallop, rubs, NL S1 S2 GI: No tenderness/rebounding/guarding Other Extremities comments:: Left foot plantar tenderness Neuro/Psych: No focal deficits ED Labs/Radiology/EKG Results - Radiology Results Results: Left foot X ray: no fracture, calcaneal spur ED Assessment - Assessment General Assessment: Left foot pain Left plantar fasciitis UTI Assessment/Comments:: CBC, CMP, uric acid UA, urine drug screen Left foot X ray Toradol 30mg IM x 1 Bactrim DS po x 1 D/c home Bactrim DS bid x 3 days F/u PCP and water treatment technician ED Septic Shock - . Is Septic Shock (SBP<90, OR Lactate>4 mmol\L) present?: No - <6hrs of presentation: Vital Signs: Vital Signs - 8 hr 06/23/18 11:42 Temp 97.3 F HR 107 RR 18 BP 113/82 O2 Sat % 99 ED Reassessment (Disposition) - Reassessment Reassessment Condition:: Improved - Patient Disposition Discharge/Transfer:: Home ED Discharge Plan - Patient Disposition Prescriptions: Sulfamethoxazole/Trimethoprim [Bactrim Ds Tablet] 1 tab PO BID #6 tab Instructions: Heel Spur, Plantar Fasciitis Additional Instructions: Follow-up with primary MD and water treatment technician as soon as possible. Return to nearest ED if symptoms worsen.
[2017-06-23 13:02] LABS: % BASOPHILS 0.3 % (0.0-2.0); % EOSINOPHILS 1.5 % (0.0-5.0); % LYMPHOCYTES 11.4 % (20.0-50.0); % MONOCYTES 7.1 % (2.0-10.0); % NEUTROPHILS 79.7 % (40.0-80.0); EOSINOPHILE ABSOLUTE 0.1 Th/cmm (0.1-0.4); HEMATOCRIT 36.1 % (41.0-60); HEMOGLOBIN 11.7 gm/dL (12-16); LYMPHOCYTE ABSOLUTE 0.9 Th/cmm (1.5-3.0); MEAN CORPUSCULAR HEMOGLOBIN 27.5 pg (27.0-31.0); MEAN CORPUSCULAR HGB CONC 32.3 pg (28.0-36.0); MEAN PLATELET VOLUME 7.8 fl; MONOCYTE ABSOLUTE 0.6 Th/cmm (0.3-1.0); NEUTROPHILE ABSOLUTE 6.3 Th/cmm (1.8-8.0); PLATELET COUNT 314 Th/cmm (150-400); RED BLOOD COUNT 4.24 Mil/cmm (3.80-5.10); RED CELL DISTRIBUTION WIDTH 15.8 % (11.5-20.0); WHITE BLOOD COUNT 7.9 Th/cmm (4.8-10.8)
[2017-06-23 13:17] LABS: ALB/GLOB RATIO 1.1 (1.0-1.8); ALBUMIN 3.8 gm/dL (3.7-5.3); ALKALINE PHOSPHATASE 53 U/L (34-104); ANION GAP 10.8 (7.0-16.0); BILIRUBIN,TOTAL 0.5 mg/dL (0.3-1.0); BUN - UREA NITROGEN 11 mg/dL (7-25); CALCIUM SERUM 10.1 mg/dL (8.6-10.3); CARBON DIOXIDE 28.5 mEq/L (21.0-31.0); CHLORIDE 103 mEq/L (98-107); CREATININE - SERUM 0.8 mg/dL (0.6-1.2); GFR AFRICAN-AMERICAN > 60.0 ml/min (>90); GFR NON AFRICAN-AMERICAN > 60.0 ml/min; GLUCOSE 85 mg/dL (70-105); POTASSIUM SERUM 4.3 mEq/L (3.5-5.1); SGOT 22 U/L (13-39); SGPT/ALT 11 U/L (7-52); SODIUM SERUM 138 mEq/L (136-145); TOTAL PROTEIN,SERUM 7.4 gm/dL (6.0-8.3); URIC ACID 3.9 mg/dL (2.3-6.6)
[2017-06-23 13:45] LABS: URINE MICROSCOPIC INDICATED? YES; URINE SOURCE RANDOM
[2017-06-23 13:50] LABS: URINE BILIRUBIN SMALL (NEGATIVE); URINE BLOOD NEGATIVE (NEGATIVE); URINE GLUCOSE (UA) NEGATIVE (NEGATIVE); URINE KETONE NEGATIVE (NEGATIVE); URINE LEUKOCYTE ESTERASE NEGATIVE (NEGATIVE); URINE NITRATE NEGATIVE (NEGATIVE); URINE PH 5.5 (4.6 - 8.0); URINE PROTEIN 30 mg/dL (NEGATIVE); URINE UROBILINOGEN 0.2 E.U./dL (0.2 - 1.0)
[2017-06-23 13:54] LABS: URINE CLARITY HAZY (CLEAR); URINE COLOR YELLOW
[2017-06-23 13:57] LABS: URINE BACTERIA 1+ /hpf (NONE SEEN); URINE EPITHELIAL CELLS MODERATE /lpf (FEW); URINE FINE GRANULAR CAST 0-2 /lpf (NONE SEEN)
[2017-06-23 13:58] LABS: URINE WHITE BLOOD CELL CAST 0-2 /lpf (NONE SEEN)
[2017-06-23 14:00] LABS: AMPHETAMINE URINE NEGATIVE (NEGATIVE); BARBITURATES URINE NEGATIVE (NEGATIVE); BENZODIAZEPINES QUAL URINE NEGATIVE (NEGATIVE); CANNABINOID THC NEGATIVE (NEGATIVE); COCAINE METABOLITE QUAL URINE NEGATIVE (NEGATIVE); METHADONE URINE NEGATIVE (NEGATIVE); METHAMPHETAMINES QUAL URINE NEGATIVE (NEGATIVE); OPIATES (MORPHINE) QUAL. URINE NEGATIVE (NEGATIVE); PHENCYCLIDINE (PCP) URINE NEGATIVE (NEGATIVE); TRICYCLICS (TCA) QUAL. URINE NEGATIVE (NEGATIVE)
[2017-06-23] MEDS ORDERED: Sulfamethoxazole/TMP 800/160mg Tab PO ONE (14:10)
[2017-06-23] MEDS ORDERED: Sulfamethoxazole/TMP 800/160mg Tab ONE (14:11)
--- NOTE | 2017-06-24 10:39 | Diagnostic Imaging Report ---
Left foot 3 views Indication: Plantar pain Comparison: none Findings: There is a small plantar calcaneal spur. Mild to moderate degenerative changes are noted with osteophytic spurring of the talonavicular junction. There is slight irregularity involving the medial aspect of the navicular bone. No focal soft tissue swelling. Impression: Small plantar calcaneal spur. Slight irregularity involving the medial aspect of navicular bone possibly related to previous trauma, probably old. Otherwise no acute fracture identified. Please correlate with clinical findings. Degenerative changes. In the setting of trauma, if clinical symptoms persist and there is continued concern for an occult fracture, follow up exams in 5-7 days is suggested.
== END 2017-06-23 14:30 | disposition home or self-care (01) ==
LOC: ER 11:40
DX: M79.672 Pain in left foot (principal); E78.5 Hyperlipidemia, unspecified; F17.200 Nicotine dependence, unspecified, uncomplicated; M72.2 Plantar fascial fibromatosis; N39.0 Urinary tract infection, site not specified
CPT/HCPCS: 99285; 96372; 73630; 84484; 36415; 80307; 85025; 80053; 84550; 81001; J1885

== ENCOUNTER 2017-07-02 12:31 | Inpatient (IN) | payer MEDICAID ==
[2017-07-02] MEDS ORDERED: cefTRIAXone 1 GM in Sodium Chloride 0.9% 50 ML IV ONE (15:15)
[2017-07-02] MEDS ORDERED: Morphine Sulfate 2 mg/mL 1mL Syr IV STA (15:21)
--- NOTE | 2017-07-02 15:21 | ED Physician Chart ---
ED Chief Complaint/HPI - Patient Information Date Seen:: 07/02/17 Time Seen:: 12:50 Chief Complaint:: Leg Redness History of Present Illness:: onset x 3 days of LE pain, erythema, and swelling; pt denies trauma, H/As, neck pain, C/P, SOB, Abd. Pain, A/N/V/D/c, fever, chills, or urinary s/s; pt's last tetanus shot: < 5 years; UTD Allergies:: Allergies Allergy/AdvReac Type Severity Reaction Status Date / Time doxycycline Allergy Verified 06/11/17 10:19 levofloxacin [From Levaquin] Allergy Verified 06/11/17 10:19 prednisone Allergy Verified 06/11/17 10:19 tetracycline Allergy Verified 06/11/17 10:19 Vitals:: Vital Signs - 8 hr 07/02/17 12:49 Temp 98.1 F HR 97 RR 23 BP 139/95 O2 Sat % 98 Historian:: Patient Review:: Nurse's Note Reviewed ED Review of Systems - Review of Systems General/Constitutional: No fever, No chills, No weight loss, No weakness, No diaphoresis, No edema, No loss of appetite Skin: Skin lesions, Rash, No bruising Head: No headache, No light-headedness Eyes: No loss of vision, No pain, No diplopia ENT: No earache, No nasal drainage, No sore throat, No tinnitus Neck: No neck pain, No swelling, No thyromegaly, No stiffness, No mass noted Cardio Vascular: No chest pain, No palpitations, No PND, No orthopnea, No edema Pulmonary: No SOB, No cough, No sputum, No wheezing GI: No nausea, No vomiting, No diarrhea, No pain, No melena, No hematochezia, No constipation, No hematemesis G/U: No dysuria, No frequency, No hematuria, No nacturia Musculoskeletal: No bone or joint pain, No back pain, No muscle pain Endocrine: No polyuria, No polydipsia Psychiatric: Prior psych history, No prior psych history, Depression, Anxiety, No suicidal ideation, No homicidal ideation, No auditory hallucination, No visual hallucination Hematopoietic: No bruising, No lymphadenopathy Allergic/Immuno: No urticaria, No angioedema Neurological: No syncope, No focal symptoms, No weakness, No paresthesia, No headache, No seizure, No dizziness, Confusion, No vertigo ED Past Medical History - Past Medical History Obtainable: Yes Past Medical History: HTN, Asthma/COPD, Dyslipidemia, PUD/GERD, Arthritis, Dementia Family History: HTN Social History: Non Smoker, No Alcohol, No Drug Use, Single Surgical History: None Psychiatricy History: Depression, Bipolar, Dementia Medication: Reviewed Family Medical History - Family Member Mother Ethnicity: Non- Living Status: Still Living Hx Family Cancer: No Hx Family Coronary Artery Disease: No Hx Family Congestive Heart Failure: No Hx Family Hypertension: No Hx Family Stroke: No Hx Family Diabetes: Yes Hx Family Seizures: No Hx Family Dementia: No Hx Family AIDS: No Hx Family HIV: No Hx Family COPD: No Hx Family Hepatitis: No Hx Family Psychiatric Problems: No Hx Family Tuberculosis: No Brother History Unknown: Yes Ethnicity: Non- Living Status: Still Living Hx Family Cancer: No Hx Family Coronary Artery Disease: No Hx Family Congestive Heart Failure: No Hx Family Hypertension: Yes Hx Family Stroke: No Hx Family Diabetes: Yes Hx Family Seizures: No Hx Family Dementia: No Hx Family AIDS: No Hx Family HIV: No Hx Family COPD: No Hx Family Hepatitis: No Hx Family Psychiatric Problems: No Hx Family Tuberculosis: No ED Physical Exam - Physical Examination General/Constitutional: Awake, Well-developed, well-nourished, Alert, No distress, GCS 15, Non-toxic appearing, Ambulatory Head: Atraumatic Eyes: Lids, conjuctiva normal, PERRL, EOMI Skin: No rash, No skin lesions, No ecchymosis, Well hydrated, No lymphadenopathy Other Skin comments:: LE: Bilateral LE Cellulitis ENMT: External ears, nose nl, TM canals nl, Nasal exam nl, Lips, teeth, gums nl , Oropharynx nl, Tonsils nl Neck: Nontender, Full ROM w/o pain, No JVD, No nuchal rigidity, No bruit, No mass, No stridor Respiratory: Nl effort/Exclusion, Clear to Auscultation, No Wheeze/Rhonchi/Rales Cardio Vascular: RRR, No murmur, gallop, rubs, NL S1 S2, Carotid/Femoral/Distal pulses equal bilaterally GI: No tenderness/rebounding/guarding, No organomegaly, No hernia, Normal BS's, Nondistended, No mass/bruits, No McBurney tenderness : No CVA tenderness Extremities: No tenderness or effusion, Full ROM, normal strength in all extremities, No edema, Normal digits & nails Neuro/Psych: Alert/oriented, DTR's symmetric, Normal sensory exam, Normal motor strength, Judgement/insight normal, Mood normal, Normal gait, No focal deficits Misc: Normal back, No paraspinal tenderness ED Labs/Radiology/EKG Results - Lab Results Comments:: WBC: 11.6; + Anemia - Radiology Results Comments:: NAD - EKG Interpretations EKG Time:: 15:15 Rate & Rhythm: 92; NSR Comments:: T-Wave Inversions ED Septic Shock - . Is Septic Shock (SBP<90, OR Lactate>4 mmol\L) present?: No - <6hrs of presentation: Vital Signs: Vital Signs - 8 hr 07/02/17 12:49 Temp 98.1 F HR 97 RR 23 BP 139/95 O2 Sat % 98 ED Reassessment (Disposition) - Reassessment Reassessment Condition:: Improved - Diagnosis Diagnosis:: Dx: Cellulitis; Leg Pain; Myocardial Ischemia; Leukocytosis; Anemia - Aftercare/Follow up Instructions Aftercare/Follow-Up Instructions:: Counseled pt regarding lab results/diagnosis & need follow up, Counseled pt & family regarding lab results/diagnosis & need follow up - Patient Disposition Discharge/Transfer:: Acute Care w/in this hosp Accepting Physician:: Dr. Roque Time Called:: 1500 Time Responded:: 15:00 Admitted to:: Telemetry Spoke to:: Dr. Roque Admitting Medical Physician:: Dr. Roque Condition at Disposition:: Stable, Improved
[2017-07-02] MEDS ORDERED: Morphine Sulfate 4 mg/mL 1mL Syr ONE (15:55)
[2017-07-02 16:04] LABS: % MONOCYTES 6.1 % (2.0-10.0)
[2017-07-02 16:12] LABS: % LYMPHOCYTES 14.8 % (20.0-50.0); % NEUTROPHILS 74.2 % (40.0-80.0); HEMATOCRIT 30.2 % (41.0-60); HEMOGLOBIN 9.5 gm/dL (12-16); MEAN CELL VOLUME 83.7 fl (81-100); MEAN CORPUSCULAR HEMOGLOBIN 26.4 pg (27.0-31.0); MEAN CORPUSCULAR HGB CONC 31.6 pg (28.0-36.0); MEAN PLATELET VOLUME 7.7 fl; PLATELET COUNT 357 Th/cmm (150-400); RED CELL DISTRIBUTION WIDTH 14.8 % (11.5-20.0); WHITE BLOOD COUNT 11.6 Th/cmm (4.8-10.8)
[2017-07-02 16:13] LABS: % EOSINOPHILS 4.9 % (0.0-5.0); EOSINOPHILE ABSOLUTE 0.6 Th/cmm (0.1-0.4); LYMPHOCYTE ABSOLUTE 1.7 Th/cmm (1.5-3.0); MONOCYTE ABSOLUTE 0.7 Th/cmm (0.3-1.0); NEUTROPHILE ABSOLUTE 8.6 Th/cmm (1.8-8.0)
[2017-07-02 16:19] LABS: INR 0.93 (0.5-1.4); PROTHROMBIN TIME (TEST) 9.7 SECONDS (9.5-11.5)
[2017-07-02 16:24] LABS: TROP I < 0.01 ng/mL (0.01-0.05)
[2017-07-02 16:36] LABS: ALBUMIN 3.4 gm/dL (3.7-5.3); ALKALINE PHOSPHATASE 58 U/L (34-104); BILIRUBIN,TOTAL 0.3 mg/dL (0.3-1.0); BUN - UREA NITROGEN 14 mg/dL (7-25); CALCIUM SERUM 8.9 mg/dL (8.6-10.3); CARBON DIOXIDE 21.8 mEq/L (21.0-31.0); CHLORIDE 106 mEq/L (98-107); CREATININE - SERUM 0.6 mg/dL (0.6-1.2); CREATININE KINASE 325 U/L (30-223); GFR AFRICAN-AMERICAN > 60.0 ml/min (>90); GFR NON AFRICAN-AMERICAN > 60.0 ml/min; GLUCOSE 82 mg/dL (70-105); POTASSIUM SERUM 3.8 mEq/L (3.5-5.1); SGOT 28 U/L (13-39); SGPT/ALT 16 U/L (7-52); SODIUM SERUM 137 mEq/L (136-145); TOTAL PROTEIN,SERUM 6.7 gm/dL (6.0-8.3)
[2017-07-02] MEDS ORDERED: Morphine Sulfate 4 mg/mL 1mL Syr IVP PRN (22:18)
[2017-07-02] MEDS: Morphine Sulfate 4 mg/mL 1mL Syr IVP PRN (23:19)
[2017-07-03] MEDS: Morphine Sulfate 4 mg/mL 1mL Syr IVP PRN ×5 (01:28→20:47)
[2017-07-03] MEDS ORDERED: Non-Formulary Item 1 EA (Albuterol Sulfate [Proair Respiclick] 2 PUFF) IH PRN (01:37)
[2017-07-03 07:03] LABS: % EOSINOPHILS 4.8 % (0.0-5.0); % MONOCYTES 7.5 % (2.0-10.0); % NEUTROPHILS 75.7 % (40.0-80.0); EOSINOPHILE ABSOLUTE 0.3 Th/cmm (0.1-0.4); HEMATOCRIT 31.9 % (41.0-60); HEMOGLOBIN 10.2 gm/dL (12-16); LYMPHOCYTE ABSOLUTE 0.7 Th/cmm (1.5-3.0); MEAN CELL VOLUME 84.1 fl (81-100); MEAN CORPUSCULAR HEMOGLOBIN 26.9 pg (27.0-31.0); MEAN PLATELET VOLUME 7.3 fl; MONOCYTE ABSOLUTE 0.5 Th/cmm (0.3-1.0); NEUTROPHILE ABSOLUTE 4.5 Th/cmm (1.8-8.0); RED BLOOD COUNT 3.79 Mil/cmm (3.80-5.10)
[2017-07-03 07:08] LABS: PLATELET COUNT 523 Th/cmm (150-400)
[2017-07-03 07:16] LABS: ANION GAP 9.8 (7.0-16.0); BUN - UREA NITROGEN 11 mg/dL (7-25); CARBON DIOXIDE 26.4 mEq/L (21.0-31.0); CHLORIDE 105 mEq/L (98-107); CHOLESTEROL 151 mg/dL (<200); CREATININE - SERUM 0.6 mg/dL (0.6-1.2); GFR AFRICAN-AMERICAN > 60.0 ml/min (>90); GFR NON AFRICAN-AMERICAN > 60.0 ml/min; GLUCOSE 119 mg/dL (70-105); HDL -HIGH DENSITY LIPOPROTEIN 40 mg/dL (23-92); POTASSIUM SERUM 3.2 mEq/L (3.5-5.1); SODIUM SERUM 138 mEq/L (136-145); TRIGLYCERIDES 75 mg/dL (<150)
--- NOTE | 2017-07-03 07:48 | Diagnostic Imaging Report ---
Portable chest x-ray HISTORY: Pain Patient is rotated. The heart size is normal. No focal pulmonary processes. Allowing for the rotation, no other significant abnormalities. IMPRESSION: 1. No acute abnormalities
--- NOTE | 2017-07-03 07:49 | Diagnostic Imaging Report ---
Bilateral lower extremity Doppler venous ultrasound exam HISTORY: Pain/swelling Sonographic sector images were obtained through the deep venous systems of both legs. Associated Doppler data was obtained. The exam demonstrates patency of the common femoral, superficial femoral, popliteal, and posterior tibial veins bilaterally. Specifically, no thrombus is seen. There are normal compressibility and augmentation responses. IMPRESSION: Negative exam for deep vein thrombophlebitis.
[2017-07-03] MEDS ORDERED: Probiotic Screen MC PRN (08:47)
[2017-07-03] MEDS ORDERED: Sulfamethoxazole/TMP 800/160mg Tab PO SCH (09:00)
[2017-07-03] MEDS ORDERED: FLUTICASONE FUROATE IH SCH (09:00)
[2017-07-03] MEDS: Nicotine 7 mg/24 hr Tdm TD SCH (09:16)
[2017-07-03] MEDS: Lactobacillus Rhamnosus GG 15 Billion CFU CAP.SPRINK PO SCH (09:21)
[2017-07-03] MEDS: Pantoprazole 40 mg EC Tab PO SCH (09:21)
--- NOTE | 2017-07-03 13:56 | Consultation ---
Consult Note - Consult Note Service Date: 07/03/17 Referring Physician: Efra Roque Consult Note: PHYSICIAN Consultation Note: Date of Admission: 07/02/17 Purpose of Consultation: cellulitis of the left foot. Chief Complaint: Patient SERGIO MALCOLM was admitted to [facility] with CELLULITIS,LEUKOCYTOSIS,ANEMIA,MYOCARDIAL ISCHEMIA. History of Present Illness: 61 year old female with history of RI, anemia, stepped a nail and devleloped discolration of multiple toes of the left foot. She came to the ED for further evaluation and management. On initial evaluation, her temperature was 98.1 degree F and wbc count was 11,200. cellulitis was diagnosed and ID consult was called for antibiotic management. vancomycin IV and zosyn were started. Past Medical History: Allergies Allergy/AdvReac Type Severity Reaction Status Date / Time doxycycline Allergy Verified 06/11/17 10:19 levofloxacin [From Levaquin] Allergy Verified 06/11/17 10:19 prednisone Allergy Verified 06/11/17 10:19 tetracycline Allergy Verified 06/11/17 10:19 Vital Signs Temp 97.5 F 07/03/17 12:00 Pulse 71 07/03/17 12:00 Resp 18 07/03/17 12:00 BP 127/79 07/03/17 12:00 Pulse Ox 99 07/03/17 12:00 Intake & Output 07/02/17 07/03/17 07/03/17 18:59 06:59 18:59 Weight (lbs) 77.882 kg 77.564 kg Other: Stool Characteristics Soft Soft Weight Source Bedscale Bedscale Laboratory Results - last 24 hr 07/03/17 07/03/17 07/03/17 06:20 06:20 06:20 WBC 6.0 D RBC 3.79 L Hgb 10.2 L Hct 31.9 L MCV 84.1 MCH 26.9 L MCHC Differential 32.0 RDW 15.0 Plt Count 523 H D MPV 7.3 Neutrophils % 75.7 Lymphocytes % 12.0 L Monocytes % 7.5 Eosinophils % 4.8 Basophils % 0.0 Sodium 138 Potassium 3.2 L Chloride 105 Carbon Dioxide 26.4 Anion Gap 9.8 BUN 11 Creatinine 0.6 Est GFR ( Amer) > 60.0 Est GFR (Non-Af Amer) > 60.0 BUN/Creatinine Ratio 18.3 Glucose 119 H Calcium 9.0 Triglycerides 75 Cholesterol 151 LDL Cholesterol Direct 99 HDL Cholesterol 40 TSH 1.11 Home Medication Medication Instructions Recorded Type Hydrochlorothiazide [Hctz*] 12.5 mg PO DAILY 06/16/17 History Albuterol Sulfate [Proair 2 puff IH Q4HR PRN 06/23/17 History Respiclick] Atorvastatin Calcium [Lipitor] 20 mg PO HS 06/23/17 History Baclofen [Lioresal*] 10 mg PO BID PRN 06/23/17 History Ergocalciferol [Vitamin D] 50,000 iu PO QWEEK 06/23/17 History Fluticasone Furoate [Arnuity 1 puff IH DAILY 06/23/17 History Ellipta] Gabapentin 600 mg PO TID 06/23/17 History Loperamide [Imodium] 2 mg PO QID 06/23/17 History Metoclopramide [Reglan] 10 mg PO TID PRN 06/23/17 History Naproxen 500 mg PO BID PRN 06/23/17 History Nicotine 7 mg/24 hr [Nicotine 7 mg TD DAILY 06/23/17 History Transdermal System] Omeprazole 40 mg PO DAILY 06/23/17 History Sertraline [Zoloft] 50 mg PO DAILY 06/23/17 History Sulfamethoxazole/Trimethoprim 1 tab PO BID #6 tab 06/23/17 Rx [Bactrim Ds Tablet] Current Medications Generic Name Dose Route Start Last Admin Trade Name Freq PRN Reason Stop Dose Admin Acetaminophen 650 mg 07/02/17 21:42 Tylenol PO 08/31/17 21:41 Q4H PRN Mild Pain or Fever >101 Atorvastatin Calcium 20 mg 07/03/17 21:00 Lipitor PO 09/01/17 20:59 HS BERNY Baclofen 10 mg 07/03/17 01:37 07/03/17 09:17 Lioresal PO 09/01/17 01:36 10 mg BID PRN Administration MUSCLE SPASM Ergocalciferol 50,000 iu 07/03/17 01:45 07/03/17 09:41 Vitamin D PO 09/01/17 01:44 50,000 iu QWEEK BERNY Administration Gabapentin 600 mg 07/03/17 09:00 07/03/17 13:46 Neurontin PO 09/01/17 08:59 600 mg TID BERNY Administration Hydrochlorothiazide 12.5 mg 07/03/17 09:00 07/03/17 09:17 Hctz PO 09/01/17 08:59 12.5 mg DAILY BERNY Administration Piperacillin Sod/Tazobactam 50 mls @ 100 mls/hr 07/03/17 21:00 Sod 3.375 gm/ Sodium Chloride IV 09/01/17 20:59 Q8HR BERNY Vancomycin HCl 0.75 gm/ Sodium 250 mls @ 165 mls/hr 07/03/17 17:00 Chloride IV 09/01/17 16:59 Q12H BERNY Lactobacillus Rhamnosus 1 each 07/03/17 09:00 07/03/17 09:21 Culturelle 15b PO 09/01/17 08:59 1 each DAILY BERNY Administration Loperamide HCl 2 mg 07/03/17 09:00 07/03/17 13:47 Imodium PO 09/01/17 08:59 2 mg QID BERNY Administration Metoclopramide HCl 10 mg 07/03/17 01:37 07/03/17 13:46 Reglan PO 09/01/17 01:36 10 mg TID PRN Administration Vomiting Miscellaneous 2 puff 07/03/17 01:37 Albuterol Sulfate [Proair Respiclick] IH Q4HR PRN Wheezing Miscellaneous 1 puff 07/03/17 09:00 Fluticasone Furoate [Arnuity Ellipta] 09/01/17 08:59 DAILY BERNY Miscellaneous 1 07/03/17 08:47 Probiotic Screen 09/01/17 08:46 PRN PRN PROTOCOL Miscellaneous 1 ea 07/03/17 13:48 Vancomycin Iv Per Pharmacy 09/01/17 13:47 PRN PRN PROTOCOL Morphine Sulfate 1 mg 07/02/17 22:17 07/03/17 01:28 Morphine IVP 08/31/17 22:16 1 mg Q4HR PRN Administration Pain (Moderate) Morphine Sulfate 2 mg 07/02/17 23:12 07/03/17 13:46 Morphine IVP 08/31/17 22:17 2 mg Q4H PRN Administration Pain (Severe) Naproxen 500 mg 07/03/17 01:37 07/03/17 13:46 Naprosyn PO 09/01/17 01:36 500 mg BID PRN Administration Pain (Mild) Nicotine 7 mg 07/03/17 09:00 07/03/17 09:16 Nicotine Transdermal System TD 09/01/17 08:59 7 mg DAILY BERNY Administration Ondansetron HCl 4 mg 07/02/17 22:17 Zofran IV 08/31/17 21:39 Q6H PRN Nausea / Vomiting Pantoprazole Sodium 40 mg 07/03/17 09:00 07/03/17 09:21 Protonix PO 09/01/17 08:59 40 mg DAILY BERNY Administration Sertraline HCl 50 mg 07/03/17 09:00 Zoloft PO 09/01/17 08:59 DAILY BERNY Protocol Trimethoprim/Sulfamethoxazole 1 tab 07/03/17 09:00 07/03/17 09:41 Bactrim Ds PO 09/01/17 08:59 1 tab BID BERNY Administration Review of Systems: A 12 point ROS was reviewed with the pertinent positive and negatives noted in the HPI. Social History Smoking Status Current every day smoker Family Medical History Family Medical History Start: 07/02/17 20: 29 Freq: ONCE Status: Active Document 07/02/17 20:29 NEHEMIAH (Rec: 07/03/17 00:46 NEHEMIAH HALLIE-[id number]) Family Medical History Brother History Unknown Yes Mother History Unknown Yes Physical Exam: General: Comfortable, cachectic, not in any acute distress. HEENT: Head: NC NT. Oral cavity: moist, pink tongue. Eyes: pallor is present, no icterus. Pupil perrla, EOMI. Neck: Supple. No thyromegaly, no use of accessory neck muscle use, no JVD. Cardio: S1 and S2 WNL. No murmur. Respiratory: vesiculsr breath sounds. Abdominal: Soft NT ND BS present. Genital/Urinary: Deferred/ Extremities: NCCE, left foot 1st 2nd 3rd has darkening of the overlying skin at the dsital end. Neurological: AAOx3 Assessment: 1. Left foot cellulitis. 2. PAD. 3. pregangreous condition of left foot. ? Buerger's disease. 4. H/o smoking: Plan: Patient needs to quit smoking. continue vanco and zosyn. Dr Mccormick, Vascular surgery consult. arterial study. venous study. Thank you, Dr Bray for involving me intaking care of this patient. Signed, Anurag Ray M.D. [id number]
[2017-07-03] MEDS ORDERED: Atorvastatin Calcium 10 MG TAB PO SCH (21:00)
[2017-07-04] MEDS: Morphine Sulfate 4 mg/mL 1mL Syr IVP PRN ×2 (01:49→04:53)
[2017-07-04 02:18] LABS: URINE MICROSCOPIC INDICATED? YES; URINE SOURCE MIDSTREAM
[2017-07-04 02:22] LABS: URINE BILIRUBIN NEGATIVE (NEGATIVE); URINE BLOOD NEGATIVE (NEGATIVE); URINE GLUCOSE (UA) NEGATIVE (NEGATIVE); URINE KETONE NEGATIVE (NEGATIVE); URINE LEUKOCYTE ESTERASE NEGATIVE (NEGATIVE); URINE NITRATE NEGATIVE (NEGATIVE); URINE PH 5.5 (4.6 - 8.0); URINE PROTEIN NEGATIVE (NEGATIVE); URINE UROBILINOGEN 0.2 E.U./dL (0.2 - 1.0)
[2017-07-04 02:44] LABS: URINE BACTERIA FEW /hpf (NONE SEEN); URINE CLARITY CLEAR (CLEAR); URINE COLOR YELLOW; URINE EPITHELIAL CELLS FEW /lpf (FEW); URINE RBC 0-2 /hpf (0-5); URINE WBC 0-2 /hpf (0-5)
--- NOTE | 2017-07-04 07:32 | Diagnostic Imaging Report ---
Bilateral upper extremity Doppler venous ultrasound exam HISTORY: Pain, swelling Sonographic sector images were obtained through the internal jugular, subclavian, axial, brachial, basilic, cephalic veins bilaterally. Associated Doppler data obtained. The exam demonstrates patency of the venous structures noted above. No intraluminal abnormalities. Specifically, no thrombus identified. Normal compressibility and augmentation responses. IMPRESSION: 1. No evidence of thrombophlebitis.
--- NOTE | 2017-07-04 07:32 | Diagnostic Imaging Report ---
Bilateral lower extremity Doppler arterial ultrasound exam HISTORY: Peripheral vascular disease, pain Sonographic sector images were obtained through the arterial systems of both legs. Associated Doppler data was obtained. The exam of the right leg demonstrates triphasic waveforms within the common femoral, superficial femoral, popliteal, anterior tibial, and posterior tibial arteries. The ankle-brachial index is normal (1.2). Sonographic sector images demonstrate mild diffuse atherosclerotic changes within the arterial system and generalized intimal thickening. No significant narrowing or stenosis is seen. The exam of the left leg demonstrates triphasic waveforms within the common femoral, superficial femoral, popliteal arteries. Abnormal monophasic waveforms are noted with the left anterior tibial, posterior tibial, dorsalis pedis arteries. Decreased velocity noted below the knee. The ankle brachial index remains normal (1.2). Sonographic images demonstrate multifocal atherosclerotic changes throughout the arterial system. There does not appear to be a significant focal narrowing or occlusion. IMPRESSION: 1. Evidence of mild to moderate atherosclerotic changes throughout the arterial system of the left leg that is more pronounced below the knee. No discrete occlusion. 2. Evidence of mild diffuse atherosclerotic changes throughout the right leg.
[2017-07-04] MEDS: Lactobacillus Rhamnosus GG 15 Billion CFU CAP.SPRINK PO SCH (09:11)
[2017-07-04] MEDS: Pantoprazole 40 mg EC Tab PO SCH (09:11)
[2017-07-04] MEDS: Nicotine 7 mg/24 hr Tdm TD SCH (09:12)
--- NOTE | 2017-07-04 12:45 | Diagnostic Imaging Report ---
Exam: Left foot portable exam HISTORY: Fracture. Findings: Multiple views of the left foot portably at 1100 hours reviewed. The study demonstrates no evidence for acute fracture or dislocation. There is no evidence of soft tissue swelling. Mild spurring was calcaneus is noted. Mild degenerative osteophytic changes are noted. IMPRESSION: Essentially unremarkable examination of left foot.
--- NOTE | 2017-07-04 13:59 | Internal Medicine Prog Note ---
Internal Medicine Subjective - Subjective Service Date: 07/04/17 ([facility] [id number]) Internal Medicine Objective - Results Result Diagrams: 07/03/17 06:20 07/03/17 06:20 Recent Labs: Laboratory Last Values WBC 6.0 Th/cmm (4.8-10.8) D 07/03/17 06:20 RBC 3.79 Mil/cmm (3.80-5.10) L 07/03/17 06:20 Hgb 10.2 gm/dL (12-16) L 07/03/17 06:20 Hct 31.9 % (41.0-60) L 07/03/17 06:20 MCV 84.1 fl (81-100) 07/03/17 06:20 MCH 26.9 pg (27.0-31.0) L 07/03/17 06:20 MCHC Differential 32.0 pg (28.0-36.0) 07/03/17 06:20 RDW 15.0 % (11.5-20.0) 07/03/17 06:20 Plt Count 523 Th/cmm (150-400) H D 07/03/17 06:20 MPV 7.3 fl 07/03/17 06:20 Neutrophils % 75.7 % (40.0-80.0) 07/03/17 06:20 Lymphocytes % 12.0 % (20.0-50.0) L 07/03/17 06:20 Monocytes % 7.5 % (2.0-10.0) 07/03/17 06:20 Eosinophils % 4.8 % (0.0-5.0) 07/03/17 06:20 Basophils % 0.0 % (0.0-2.0) 07/03/17 06:20 PT 9.7 SECONDS (9.5-11.5) 07/02/17 15:54 INR 0.93 (0.5-1.4) 07/02/17 15:54 PTT (Actin FS) 20.6 SECONDS (26.0-38.0) L 07/02/17 15:54 Sodium 138 mEq/L (136-145) 07/03/17 06:20 Potassium 3.2 mEq/L (3.5-5.1) L 07/03/17 06:20 Chloride 105 mEq/L (98-107) 07/03/17 06:20 Carbon Dioxide 26.4 mEq/L (21.0-31.0) 07/03/17 06:20 Anion Gap 9.8 (7.0-16.0) 07/03/17 06:20 BUN 11 mg/dL (7-25) 07/03/17 06:20 Creatinine 0.6 mg/dL (0.6-1.2) 07/03/17 06:20 Est GFR ( Amer) > 60.0 ml/min (>90) 07/03/17 06:20 Est GFR (Non-Af Amer) > 60.0 ml/min 07/03/17 06:20 BUN/Creatinine Ratio 18.3 07/03/17 06:20 Glucose 119 mg/dL (70-105) H 07/03/17 06:20 Whole Bld Lactic Acid 0.77 mmol/L (0.60-1.99) 07/02/17 15:54 Calcium 9.0 mg/dL (8.6-10.3) 07/03/17 06:20 Total Bilirubin 0.3 mg/dL (0.3-1.0) 07/02/17 15:54 AST 28 U/L (13-39) 07/02/17 15:54 ALT 16 U/L (7-52) 07/02/17 15:54 Alkaline Phosphatase 58 U/L (34-104) 07/02/17 15:54 Creatine Kinase 325 U/L (30-223) H 07/02/17 15:54 CK-MB (CK-2) 5.6 ng/mL (0.6-6.3) 07/02/17 15:54 Troponin I < 0.01 ng/mL (0.01-0.05) L 07/02/17 15:54 Total Protein 6.7 gm/dL (6.0-8.3) 07/02/17 15:54 Albumin 3.4 gm/dL (3.7-5.3) L 07/02/17 15:54 Globulin 3.3 gm/dL 07/02/17 15:54 Albumin/Globulin Ratio 1.0 (1.0-1.8) 07/02/17 15:54 Triglycerides 75 mg/dL (<150) 07/03/17 06:20 Cholesterol 151 mg/dL (<200) 07/03/17 06:20 LDL Cholesterol Direct 99 mg/dL (75-193) 07/03/17 06:20 HDL Cholesterol 40 mg/dL (23-92) 07/03/17 06:20 TSH 1.11 uIU/ml (0.34-5.60) 07/03/17 06:20 Serum , Qual NEGATIVE (NEGATIVE) 07/02/17 15:54 Urine Source MIDSTREAM 07/04/17 02:00 Urine Color YELLOW 07/04/17 02:00 Urine Clarity CLEAR (CLEAR) 07/04/17 02:00 Urine pH 5.5 (4.6 - 8.0) 07/04/17 02:00 Ur Specific [place] 1.015 (1.005-1.030) 07/04/17 02:00 Urine Protein NEGATIVE mg/dL (NEGATIVE) 07/04/17 02:00 Urine Glucose (UA) NEGATIVE mg/dL (NEGATIVE) 07/04/17 02:00 Urine Ketones NEGATIVE mg/dL (NEGATIVE) 07/04/17 02:00 Urine Blood NEGATIVE (NEGATIVE) 07/04/17 02:00 Urine Nitrate NEGATIVE (NEGATIVE) 07/04/17 02:00 Urine Bilirubin NEGATIVE (NEGATIVE) 07/04/17 02:00 Urine Urobilinogen 0.2 E.U./dL (0.2 - 1.0) 07/04/17 02:00 Ur Leukocyte Esterase NEGATIVE (NEGATIVE) 07/04/17 02:00 Urine RBC 0-2 /hpf (0-5) 07/04/17 02:00 Urine WBC 0-2 /hpf (0-5) 07/04/17 02:00 Ur Epithelial Cells FEW /lpf (FEW) 07/04/17 02:00 Urine Bacteria FEW /hpf (NONE SEEN) 07/04/17 02:00 - Physical Exam Vitals and I&O: Vital Signs Temp 96.8 F 07/04/17 12:00 Pulse 90 07/04/17 12:00 Resp 18 07/04/17 12:00 BP 124/91 07/04/17 12:00 Pulse Ox 98 07/04/17 12:00 Intake & Output 07/03/17 07/04/17 07/04/17 18:59 06:59 18:59 Intake Total 850 100 Balance 850 100 Weight (lbs) 165 lb 161 lb 6.4 oz Intake: Intake, IV Amount 250 100 Piperacillin Sodium/ 100 Tazobact 3.375 gm In Sodium Chloride 0.9% 50 ml @ 100 mls/hr IV Q8HR [facility] Rx#:[id number] Vancomycin HCl 0.75 gm In 250 Sodium Chloride 0.9% 250 ml @ 165 mls/hr IV Q12H [facility] Rx#:[id number] Oral 600 Other: # Voids 4 # Bowel Movements 1 Stool Characteristics Soft Weight Source Patient stated Bedscale Active Medications: Current Medications Acetaminophen (Tylenol) 650 mg PO Q4H PRN PRN Reason: Mild Pain or Fever >101 Stop: 08/31/17 21:41 Last Admin: 07/04/17 02:43 Dose: 650 mg Aspirin (Aspirin Chewable) 81 mg PO DAILY [facility] Stop: 09/03/17 08:59 Atorvastatin Calcium (Lipitor) 20 mg PO HS [facility] Stop: 09/01/17 20:59 Last Admin: 07/03/17 20:37 Dose: 20 mg Baclofen (Lioresal) 10 mg PO BID PRN PRN Reason: MUSCLE SPASM Stop: 09/01/17 01:36 Last Admin: 07/03/17 09:17 Dose: 10 mg Cilostazol (Pletal) 100 mg PO DAILY [facility] Stop: 09/03/17 08:59 Ergocalciferol (Vitamin D) 50,000 iu PO QWEEK [facility] Stop: 09/01/17 01:44 Last Admin: 07/03/17 09:41 Dose: 50,000 iu Gabapentin (Neurontin) 600 mg PO TID [facility] Stop: 09/01/17 08:59 Last Admin: 07/04/17 13:51 Dose: 600 mg Hydrochlorothiazide (Hctz) 12.5 mg PO DAILY [facility] Stop: 09/01/17 08:59 Last Admin: 07/04/17 09:11 Dose: 12.5 mg Piperacillin Sod/Tazobactam (Sod 3.375 gm/ Sodium Chloride) 50 mls @ 100 mls/ hr IV Q8HR [facility] Stop: 09/01/17 20:59 Last Admin: 07/04/17 12:14 Dose: 100 mls/hr Vancomycin HCl 0.75 gm/ Sodium (Chloride) 250 mls @ 165 mls/hr IV Q12H [facility] Stop: 09/01/17 16:59 Last Admin: 07/04/17 05:30 Dose: 165 mls/hr Lactobacillus Rhamnosus (Culturelle 15b) 1 each PO DAILY [facility] Stop: 09/01/17 08:59 Last Admin: 07/04/17 09:11 Dose: 1 each Loperamide HCl (Imodium) 2 mg PO QID [facility] Stop: 09/01/17 08:59 Last Admin: 07/04/17 12:19 Dose: Not Given Metoclopramide HCl (Reglan) 10 mg PO TID PRN PRN Reason: Vomiting Stop: 09/01/17 01:36 Last Admin: 07/03/17 13:46 Dose: 10 mg Miscellaneous (Albuterol Sulfate [Proair Respiclick]) 2 puff IH Q4HR PRN PRN Reason: Wheezing Miscellaneous (Fluticasone Furoate [Arnuity Ellipta]) 1 puff IH DAILY [facility] Stop: 09/01/17 08:59 Miscellaneous (Probiotic Screen) 1 ea [facility] PRN PRN PRN Reason: PROTOCOL Stop: 09/01/17 08:46 Miscellaneous (Vancomycin Iv Per Pharmacy) 1 ea [facility] PRN PRN PRN Reason: PROTOCOL Stop: 09/01/17 13:47 Morphine Sulfate (Morphine) 1 mg IVP Q4HR PRN PRN Reason: Pain (Moderate) Stop: 08/31/17 22:16 Last Admin: 07/04/17 04:53 Dose: 1 mg Morphine Sulfate (Morphine) 2 mg IVP Q4H PRN PRN Reason: Pain (Severe) Stop: 08/31/17 22:17 Last Admin: 07/04/17 01:49 Dose: 2 mg Naproxen (Naprosyn) 500 mg PO BID PRN PRN Reason: Pain (Mild) Stop: 09/01/17 01:36 Last Admin: 07/03/17 13:46 Dose: 500 mg Nicotine (Nicotine Transdermal System) 7 mg TD DAILY [facility] Stop: 09/01/17 08:59 Last Admin: 07/04/17 09:12 Dose: Not Given Ondansetron HCl (Zofran) 4 mg IV Q6H PRN PRN Reason: Nausea / Vomiting Stop: 08/31/17 21:39 Pantoprazole Sodium (Protonix) 40 mg PO DAILY [facility] Stop: 09/01/17 08:59 Last Admin: 07/04/17 09:11 Dose: 40 mg Sertraline HCl (Zoloft) 50 mg PO DAILY [facility] PRN Reason: Protocol Stop: 09/01/17 08:59 Last Admin: 07/04/17 09:11 Dose: 50 mg
--- NOTE | 2017-07-04 16:00 | Consultation ---
DATE OF CONSULTATION: 07/04/2017 SURGICAL CONSULTATION REFERRING PHYSICIAN: Dr. Roque. REASON FOR CONSULTATION: Pain in the left foot. Thank you for referring this patient to me. HISTORY OF PRESENT ILLNESS: This is a 61-year-old female who claims that she came from [place] and about 4 years ago, she lost her in a [place] and injured her left foot. Since then, she claims pain and numbness of the foot. She was here a month ago with the same complaint and x-ray of the foot then showed questionable occult fracture of the left foot. She underwent CT of the angiogram, which showed no pulmonary embolus. There is a 4 cm abdominal aortic aneurysm. She claims she has a difficult time because of the numbness and the pain in the left foot and ambulation. Ultrasound study of the lower extremity venous is negative for DVT. Arterial studies showed small vessel disease involving the lower extremities, more on the left side. Upper extremity ultrasound negative and foot x-ray shows no fracture. The patient has history of dementia. LABORATORY STUDIES: Report shows CBC to have essentially normal, chemistry likewise. PHYSICAL EXAMINATION: GENERAL: The patient is asthenic. EXTREMITIES: There is bluish discoloration of the left second and fourth toes. The rest of the foot does not show this type changes. No pedal pulses are noted bilateral. MEDICATIONS: Now consist of Lipitor, baclofen, Neurontin, hydrochlorothiazide, Imodium and Reglan. We will add Pletal and aspirin to this regimen. IMPRESSION: Will further observe the left second and fourth toes. If the ischemic changes persist might require amputation. JOB# [id number]
--- NOTE | 2017-07-04 16:20 | History & Physical ---
ADMIT DATE: 07/04/2017 CHIEF COMPLAINT: Left foot redness and pain. HISTORY OF PRESENT ILLNESS: This is a 61-year-old female who has a 3-day history of lower extremity pain associated with redness and swelling. The patient denies any fevers or any chills. For further management, the patient is admitted to the [facility] telemetry unit. PAST MEDICAL HISTORY: Hypertension, asthma, COPD, dyslipidemia, ____, GERD, arthritis and dementia. FAMILY HISTORY: Noncontributory. SOCIAL HISTORY: The patient denies any alcohol, illicit drug usage and tobacco smoking. SURGICAL HISTORY: None per patient. ALLERGIES: DOXYCYCLINE, LEVAQUIN, PREDNISONE, TETRACYCLINE. REVIEW OF SYSTEMS: GENERAL: Denies any fevers and chills. CARDIOVASCULAR: Denies chest pain. RESPIRATORY: Denies shortness of breath. GASTROINTESTINAL: Denies nausea, vomiting or abdominal pain. GENITOURINARY: Denies increased frequency or dysuria. NEUROLOGIC: No headaches, seizures or syncope. All other systems are reviewed and are negative. PHYSICAL EXAMINATION: GENERAL: The patient is well developed, well nourished, no acute distress. VITAL SIGNS: Temperature 96.8, heart rate 90, blood pressure 124/91, respiration 18 and O2 90%. HEENT: Head; normocephalic, atraumatic. NECK: Supple. No mass. LUNGS: Clear bilaterally. HEART: Regular rate and rhythm. ABDOMEN: Soft and nontender. SKIN: Left lower extremity noted with redness. LABORATORY DATA: WBC 6.0, H and H 10.2 and 31.9 and platelet of 523. Sodium 138, potassium 3.8, chloride 105, BUN 11 and creatinine 0.6. DIAGNOSTIC DATA: The patient had an x-ray of the foot done and the impression is essentially unremarkable examination of the left foot. The patient also had upper extremity ultrasound done and the impression is no evidence of thrombophlebitis. Arterial study was also done and the impression is evidence of [id number] atherosclerotic changes throughout the arterial system of the left leg that is more pronounced below the knee. No discrete occlusion. The patient also had a lower extremity ultrasound done and the impression is negative exam for DVT. ASSESSMENT: Left foot cellulitis, peripheral arterial disease, and history of asthma. PLAN: We will get Infectious Disease on the case and as requested by ID to get a vascular surgeon on the case as well. Continue the patient on vancomycin and Zosyn as per ID. We will get followup labs for tomorrow. We will continue to follow this patient. JOB# [id number]
--- NOTE | 2017-07-04 23:30 | Infectious Disease Prog Note ---
Infectious Disease Subjective - Review of Systems Service Date: 07/04/17 Infectious Disease Objective - Results Result Diagrams: 07/03/17 06:20 07/03/17 06:20 Recent Labs: Laboratory Last Values WBC 6.0 Th/cmm (4.8-10.8) D 07/03/17 06:20 RBC 3.79 Mil/cmm (3.80-5.10) L 07/03/17 06:20 Hgb 10.2 gm/dL (12-16) L 07/03/17 06:20 Hct 31.9 % (41.0-60) L 07/03/17 06:20 MCV 84.1 fl (81-100) 07/03/17 06:20 MCH 26.9 pg (27.0-31.0) L 07/03/17 06:20 MCHC Differential 32.0 pg (28.0-36.0) 07/03/17 06:20 RDW 15.0 % (11.5-20.0) 07/03/17 06:20 Plt Count 523 Th/cmm (150-400) H D 07/03/17 06:20 MPV 7.3 fl 07/03/17 06:20 Neutrophils % 75.7 % (40.0-80.0) 07/03/17 06:20 Lymphocytes % 12.0 % (20.0-50.0) L 07/03/17 06:20 Monocytes % 7.5 % (2.0-10.0) 07/03/17 06:20 Eosinophils % 4.8 % (0.0-5.0) 07/03/17 06:20 Basophils % 0.0 % (0.0-2.0) 07/03/17 06:20 PT 9.7 SECONDS (9.5-11.5) 07/02/17 15:54 INR 0.93 (0.5-1.4) 07/02/17 15:54 PTT (Actin FS) 20.6 SECONDS (26.0-38.0) L 07/02/17 15:54 Sodium 138 mEq/L (136-145) 07/03/17 06:20 Potassium 3.2 mEq/L (3.5-5.1) L 07/03/17 06:20 Chloride 105 mEq/L (98-107) 07/03/17 06:20 Carbon Dioxide 26.4 mEq/L (21.0-31.0) 07/03/17 06:20 Anion Gap 9.8 (7.0-16.0) 07/03/17 06:20 BUN 11 mg/dL (7-25) 07/03/17 06:20 Creatinine 0.6 mg/dL (0.6-1.2) 07/03/17 06:20 Est GFR ( Amer) > 60.0 ml/min (>90) 07/03/17 06:20 Est GFR (Non-Af Amer) > 60.0 ml/min 07/03/17 06:20 BUN/Creatinine Ratio 18.3 07/03/17 06:20 Glucose 119 mg/dL (70-105) H 07/03/17 06:20 Whole Bld Lactic Acid 0.77 mmol/L (0.60-1.99) 07/02/17 15:54 Calcium 9.0 mg/dL (8.6-10.3) 07/03/17 06:20 Total Bilirubin 0.3 mg/dL (0.3-1.0) 07/02/17 15:54 AST 28 U/L (13-39) 07/02/17 15:54 ALT 16 U/L (7-52) 07/02/17 15:54 Alkaline Phosphatase 58 U/L (34-104) 07/02/17 15:54 Creatine Kinase 325 U/L (30-223) H 07/02/17 15:54 CK-MB (CK-2) 5.6 ng/mL (0.6-6.3) 07/02/17 15:54 Troponin I < 0.01 ng/mL (0.01-0.05) L 07/02/17 15:54 Total Protein 6.7 gm/dL (6.0-8.3) 07/02/17 15:54 Albumin 3.4 gm/dL (3.7-5.3) L 07/02/17 15:54 Globulin 3.3 gm/dL 07/02/17 15:54 Albumin/Globulin Ratio 1.0 (1.0-1.8) 07/02/17 15:54 Triglycerides 75 mg/dL (<150) 07/03/17 06:20 Cholesterol 151 mg/dL (<200) 07/03/17 06:20 LDL Cholesterol Direct 99 mg/dL (75-193) 07/03/17 06:20 HDL Cholesterol 40 mg/dL (23-92) 07/03/17 06:20 TSH 1.11 uIU/ml (0.34-5.60) 07/03/17 06:20 Serum , Qual NEGATIVE (NEGATIVE) 07/02/17 15:54 Urine Source MIDSTREAM 07/04/17 02:00 Urine Color YELLOW 07/04/17 02:00 Urine Clarity CLEAR (CLEAR) 07/04/17 02:00 Urine pH 5.5 (4.6 - 8.0) 07/04/17 02:00 Ur Specific [place] 1.015 (1.005-1.030) 07/04/17 02:00 Urine Protein NEGATIVE mg/dL (NEGATIVE) 07/04/17 02:00 Urine Glucose (UA) NEGATIVE mg/dL (NEGATIVE) 07/04/17 02:00 Urine Ketones NEGATIVE mg/dL (NEGATIVE) 07/04/17 02:00 Urine Blood NEGATIVE (NEGATIVE) 07/04/17 02:00 Urine Nitrate NEGATIVE (NEGATIVE) 07/04/17 02:00 Urine Bilirubin NEGATIVE (NEGATIVE) 07/04/17 02:00 Urine Urobilinogen 0.2 E.U./dL (0.2 - 1.0) 07/04/17 02:00 Ur Leukocyte Esterase NEGATIVE (NEGATIVE) 07/04/17 02:00 Urine RBC 0-2 /hpf (0-5) 07/04/17 02:00 Urine WBC 0-2 /hpf (0-5) 07/04/17 02:00 Ur Epithelial Cells FEW /lpf (FEW) 07/04/17 02:00 Urine Bacteria FEW /hpf (NONE SEEN) 07/04/17 02:00 - Physical Exam Vitals and I&O: Vital Signs Temp 97 F 07/04/17 20:00 Pulse 107 07/04/17 20:00 Resp 19 07/04/17 20:00 BP 139/87 07/04/17 20:00 Pulse Ox 97 07/04/17 20:00 Intake & Output 07/04/17 07/04/17 07/05/17 06:59 18:59 06:59 Intake Total 100 1300 Balance 100 1300 Weight (lbs) 73.21 kg 73.21 kg Intake: Intake, IV Amount 100 500 Piperacillin Sodium/ 100 Tazobact 3.375 gm In Sodium Chloride 0.9% 50 ml @ 100 mls/hr IV Q8HR [facility] Rx#:[id number] Vancomycin HCl 0.75 gm In 500 Sodium Chloride 0.9% 250 ml @ 165 mls/hr IV Q12H [facility] Rx#:[id number] Oral 800 Other: # Voids 3 # Bowel Movements 0 Weight Source Bedscale Bedscale Active Medications: Current Medications Acetaminophen (Tylenol) 650 mg PO Q4H PRN PRN Reason: Mild Pain or Fever >101 Stop: 08/31/17 21:41 Last Admin: 07/04/17 02:43 Dose: 650 mg Albuterol/Ipratropium (Duoneb Neb) 3 ml HHN DAILYRT [facility] Stop: 09/03/17 08:59 Aspirin (Aspirin Chewable) 81 mg PO DAILY [facility] Stop: 09/03/17 08:59 Atorvastatin Calcium (Lipitor) 20 mg PO HS [facility] Stop: 09/01/17 20:59 Last Admin: 07/03/17 20:37 Dose: 20 mg Baclofen (Lioresal) 10 mg PO BID PRN PRN Reason: MUSCLE SPASM Stop: 09/01/17 01:36 Last Admin: 07/03/17 09:17 Dose: 10 mg Cilostazol (Pletal) 100 mg PO DAILY [facility] Stop: 09/03/17 08:59 Ergocalciferol (Vitamin D) 50,000 iu PO QWEEK [facility] Stop: 09/01/17 01:44 Last Admin: 07/03/17 09:41 Dose: 50,000 iu Gabapentin (Neurontin) 600 mg PO TID [facility] Stop: 09/01/17 08:59 Last Admin: 07/04/17 13:51 Dose: 600 mg Hydrochlorothiazide (Hctz) 12.5 mg PO DAILY [facility] Stop: 09/01/17 08:59 Last Admin: 07/04/17 09:11 Dose: 12.5 mg Piperacillin Sod/Tazobactam (Sod 3.375 gm/ Sodium Chloride) 50 mls @ 100 mls/ hr IV Q8HR [facility] Stop: 09/01/17 20:59 Last Admin: 07/04/17 12:14 Dose: 100 mls/hr Vancomycin HCl 0.75 gm/ Sodium (Chloride) 250 mls @ 165 mls/hr IV Q12H [facility] Stop: 09/01/17 16:59 Last Infusion: 07/04/17 18:24 Dose: Infused Lactobacillus Rhamnosus (Culturelle 15b) 1 each PO DAILY [facility] Stop: 09/01/17 08:59 Last Admin: 07/04/17 09:11 Dose: 1 each Loperamide HCl (Imodium) 2 mg PO QID [facility] Stop: 09/01/17 08:59 Last Admin: 07/04/17 16:45 Dose: Not Given Metoclopramide HCl (Reglan) 10 mg PO TID PRN PRN Reason: Vomiting Stop: 09/01/17 01:36 Last Admin: 07/03/17 13:46 Dose: 10 mg Miscellaneous (Probiotic Screen) 1 ea PRN PRN PRN Reason: PROTOCOL Stop: 09/01/17 08:46 Miscellaneous (Vancomycin Iv Per Pharmacy) 1 ea PRN PRN PRN Reason: PROTOCOL Stop: 09/01/17 13:47 Morphine Sulfate (Morphine) 1 mg IVP Q4HR PRN PRN Reason: Pain (Moderate) Stop: 08/31/17 22:16 Last Admin: 07/04/17 04:53 Dose: 1 mg Morphine Sulfate (Morphine) 2 mg IVP Q4H PRN PRN Reason: Pain (Severe) Stop: 08/31/17 22:17 Last Admin: 07/04/17 01:49 Dose: 2 mg Naproxen (Naprosyn) 500 mg PO BID PRN PRN Reason: Pain (Mild) Stop: 09/01/17 01:36 Last Admin: 07/03/17 13:46 Dose: 500 mg Nicotine (Nicotine Transdermal System) 7 mg TD DAILY [facility] Stop: 09/01/17 08:59 Last Admin: 07/04/17 09:12 Dose: Not Given Ondansetron HCl (Zofran) 4 mg IV Q6H PRN PRN Reason: Nausea / Vomiting Stop: 08/31/17 21:39 Pantoprazole Sodium (Protonix) 40 mg PO DAILY [facility] Stop: 09/01/17 08:59 Last Admin: 07/04/17 09:11 Dose: 40 mg Sertraline HCl (Zoloft) 50 mg PO DAILY [facility] PRN Reason: Protocol Stop: 09/01/17 08:59 Last Admin: 07/04/17 09:11 Dose: 50 mg Infectious Disease Assmt/Plan - Problem List Patient Problems: All Active Problems LEFT LOWER FOOT PAIN/SWELLING (Acute)
[2017-07-05] MEDS ORDERED: Aspirin 81mg Chewable Tab PO SCH (09:00)
[2017-07-05] MEDS ORDERED: Albuterol/Ipratropium Neb 3 ML AERS HHN SCH (09:00)
== END 2017-07-04 20:00 | disposition left against medical advice (07) | DRG 383 ==
LOC: ER 12:31 → TELE 18:16 → MSI 18:16 → TELE 21:28
PROVIDERS: ADMIT Internal Medicine; ATTEND Internal Medicine
DX: L03.116 Cellulitis of left lower limb (principal); I73.9 Peripheral vascular disease, unspecified; D64.9 Anemia, unspecified; F17.210 Nicotine dependence, cigarettes, uncomplicated; I25.2 Old myocardial infarction; I10 Essential (primary) hypertension; J44.9 Chronic obstructive pulmonary disease, unspecified; K21.9 Gastro-esophageal reflux disease without esophagitis; E78.5 Hyperlipidemia, unspecified; Z88.1 Allergy status to other antibiotic agents
CPT/HCPCS: 36415-UA; 71045-TC; 73630-TC-LT; 80048-TC; 80053-TC; 80061-TC; 81001-TC; 82550-TC; 82553; 83605; 84443-TC; 84484-TC; 84703-TC; 85025-TC; 85610-TC; 85730-TC; 93005; 93925-TC; 93970-TC-50; J0696; J2543; J3370; Z7610